=== PATIENT | male | born 1950 | race Caucasian/White ===

== ENCOUNTER 2019-04-08 20:39 | Outpatient (CLI) | payer MEDICAID, MEDICARE, OTHER | END 2019-04-08 20:40 | disposition critical access hospital (66) | LOC: EMS 20:39 | PROVIDERS: ATTEND Surgery | DX: R56.9 Unspecified convulsions (principal) | CPT/HCPCS: A0425; A0427 ==

== ENCOUNTER 2019-04-08 20:59 | Emergency (ER) | payer MEDICARE, OTHER, MEDICAID ==
--- NOTE | 2019-04-08 21:20 | ED Physician Documentation ---
PD HPI SEIZURE - Stated complaint Stated Complaint: SZ/ETOH - Chief complaint Chief Complaint: Neuro - History obtained from History obtained from: Patient, EMS, Other (nursing facility) - History of Present Illness Timing - onset: Today (just prior to arrival) Number of seizures: Single, Lasted minutes, Other (postictal afterwards) Description of seizure activity: Generalized, Tonic clonic Injury during seizure: None Associated symptoms: Other (patient was incontinent of urine). 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 denies: Generalized weakness, Focal weakness, Numbness, Difficulty speaking, Confused, Altered mental status, Headache, Head injury PD PAST MEDICAL HISTORY - Past Medical History Past Medical History: Yes Cardiovascular: Hypertension, High cholesterol Respiratory: None Endocrine/Autoimmune: None GI: None : None HEENT: None Psych: Depression Musculoskeletal: None Derm: None - Past Surgical History Past Surgical History: No - Present Medications Home Medications: Ambulatory Orders Medication Instructions Recorded Confirmed Aspirin [Simone] 325 mg PO DAILY 12/25/15 04/08/19 Clopidogrel [Plavix] 75 mg PO DAILY 12/25/15 04/08/19 Donepezil [Aricept] 10 mg PO DAILY 12/25/15 04/08/19 Simvastatin 20 mg PO DAILY 12/25/15 04/08/19 Levetiracetam [Keppra] 750 mg PO BID 02/28/16 04/08/19 Meclizine HCl [Motion Sickness 25 mg PO Q6H PRN 04/08/19 04/08/19 Relief] traZODone [Desyrel] 50 mg PO DAILY 04/08/19 04/08/19 - Allergies Allergies/Adverse Reactions: Allergies Allergy/AdvReac Type Severity Reaction Status Date / Time No Known Drug Allergies Allergy Verified 02/28/16 10:30 - Social History Does the pt smoke?: No Smoking Status: Never smoker Does the pt drink ETOH?: No Does the pt have substance abuse?: No - Immunizations Immunizations are current?: Yes - POLST Patient has POLST: Yes PD ED PE NORMAL - Vitals Vital signs reviewed: Yes - General General: Alert and oriented X 3 - HEENT HEENT: Atraumatic - Neck Neck: Supple, no meningeal sign - Cardiac Cardiac: RRR, No murmur, No gallop, No rub - Respiratory Respiratory: No respiratory distress, Clear bilaterally - Abdomen Abdomen: Soft, Non tender, Non distended - Male Male : Deferred - Rectal Rectal: Deferred - Derm Derm: Normal color, Warm and dry, No rash - Extremities Extremities: No deformity - Neuro Neuro: Alert and oriented X 3, No motor deficit, No sensory deficit, Normal speech Eye Opening: Spontaneous Motor: Obeys Commands Verbal: Oriented (slowed speech) GCS Score: 15 - Psych Psych: Normal mood, Normal affect Results - Vitals Vitals: Vital Signs - 24 hr 04/08/19 04/08/19 04/08/19 20:56 21:08 22:39 Temperature 36.5 C Heart Rate 93 71 66 Respiratory 18 14 15 Rate Blood Pressure 100/74 100/74 102/75 O2 Saturation 89 L 97 97 04/08/19 04/09/19 23:50 00:00 Temperature Heart Rate 76 81 Respiratory 12 15 Rate Blood Pressure 121/91 H 118/87 H O2 Saturation 98 98 Oxygen O2 Source [] Room air O2 Source [] Room air O2 Source Nasal cannula Oxygen Flow Rate 2 - Labs Labs: Laboratory Tests 04/08/19 04/08/19 21:22 23:41 Sodium 138 138 Potassium 2.9 L 3.8 Chloride 102 101 Carbon Dioxide 20 L 23 Anion Gap 16.0 H 14.0 H BUN 17 17 Creatinine 0.9 0.9 Estimated GFR (MDRD) 84 L 84 L Glucose 119 H 106 H Calcium 7.9 L 8.2 L Pt hypokalemic, dehydrated, potential etiology of seizure today. Will hydrate, replete K and recheck BMP. - Rads (name of study) No standard instances Radiology: Final report received (CT head negative ) PD MEDICAL DECISION MAKING - ED course Complexity details: reviewed results, re-evaluated patient, considered differential, d/w patient ED course: DDx includes seizure, syncope, electrolyte abnormality, head injury/CVA/mass, seizure due to missed medication/noncompliance. 68 y/o M with hx of seizure disorder with seizure today. On keppra, no missed doses. Appears to be consistent with seizure given incontinence and witnessed by staff. Last seizure several years ago. No head injury. This was a witnessed event in the nursing facility. He was postictal on arrival but had a normal neuro examination. he is on plavix and given no other obvious reason for seizure and episode today obtained a head CT which was negative. Labs here show hypokalemia which may have contributed. Repleted K here and will recheck lab. Departure - Departure Disposition: 01 Home, Self Care Clinical Impression: Grand mal seizure, Hypokalemia Condition: Stable Instructions: Hypokalemia Dc Follow-Up: Hermila Winters MD [Primary Care Provider] - As Needed Comments: You were evaluated in the ED today for a seizure. Your CT head was negative for acute bleeding, mass or stroke. Your labs showed significantly low potassium which could have caused your seizure. Your potassium was repleted with medication in the ED and is now normal. You should increase your intake of potassium by eating more leafy green vegetables. Return to the ED if worsening seizure.
[2019-04-08 21:35] LABS: CALCIUM 7.9 mg/dL (8.5-10.3); CREATININE 0.9 mg/dL (0.6-1.2)
[2019-04-08] MEDS ORDERED: POTASSIUM CHLORIDE 20 MEQ TABLET PO STA (21:58)
--- NOTE | 2019-04-08 22:05 | CT Report ---
Reason: seizure, on plavix, possible fall Procedure Date: 04/08/2019 Accession Number: [id number] / [id number] Procedure: CT - HEAD WO CPT Code: FULL RESULT: EXAM: CT HEAD EXAM DATE: 04/08/2019 09:36 PM. CLINICAL HISTORY: Seizure, on plavix, possible fall. COMPARISON: HEAD W/O 12/25/2015 7:56 AM. TECHNIQUE: Multiaxial CT images were obtained from the foramen magnum to the vertex. Reformats: Sagittal and coronal. IV contrast: None. In accordance with CT protocol optimization, one or more of the following dose reduction techniques were utilized for this exam: automated exposure control, adjustment of mA and/or KV based on patient size, or use of iterative reconstructive technique. 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 There is a small infarct within the left basal ganglia and the caudate head. Old small infarct within the bilateral superior parietal regions also noted. Old small left frontal infarct. There is severe chronic microvascular ischemic white matter change. Moderate diffuse cerebral volume loss is noted. There is no definite acute intracranial hemorrhage or large cortical infarct evident on this examination. Extraaxial Spaces: No abnormal extra-axial collections demonstrated. Ventricles and sulci: Moderate distention of the ventricles, out of proportion to the sulci. This is probably secondary to central predominant volume loss. Sinuses: Moderate mucosal thickening noted within the left maxillary sinus. Visualized paranasal sinuses are without air-fluid level. No evident mastoid fluid. Orbits: Without significant abnormality. Bones: No evidence of fracture or calvarial defect. Other: None. IMPRESSION: 1. No CT evidence of an acute intracranial abnormality. If there is clinical suspicion of an acute infarct, consider MRI since it is more sensitive than CT. 2. Moderate diffuse cerebral volume loss coupled with moderate to severe chronic microvascular ischemic change as well as multifocal old small areas of infarcts again seen. RADIA
[2019-04-08] MEDS ORDERED: POTASSIUM CHLOR 20 MEQ/100 ML 20 MEQ/100 ML BAG IV ONE (22:30)
[2019-04-09 00:30] LABS: CALCIUM 8.2 mg/dL (8.5-10.3); CREATININE 0.9 mg/dL (0.6-1.2)
[2019-04-09 01:57] VITALS: BP 135/95
== END 2019-04-09 02:06 | disposition home or self-care (01) ==
LOC: EDUNIT# → ED 20:59
DX: G40.409 Other generalized epilepsy and epileptic syndromes, not intractable, without status epilepticus (principal); E87.6 Hypokalemia; I10 Essential (primary) hypertension
CPT/HCPCS: 36415; 70450; 80048; 93005; 96365; 99284; A9270

== ENCOUNTER 2021-02-22 21:20 | Outpatient (CLI) | payer MEDICARE, MEDICAID ==
--- OUTSIDE RECORDS SUMMARY | 2021-03-01 00:34 | EXTERNAL MEDICAL SUMMARY RPT | Continuity of Care Document ---
:1950 Demographics Phone Unavailable Preferred Language Unknown Marital Status Unknown Episcopal Affiliation Unknown Race Unknown Ethnic Group Unknown Author Organization [place] Address [address] [place] [address] Phone Social History date description facility [phone]
== END 2021-02-22 21:21 | disposition critical access hospital (66) ==
LOC: EMS 21:20
PROVIDERS: ATTEND Emergency Medicine
DX: R42 Dizziness and giddiness (principal)
CPT/HCPCS: A0425; A0429

== ENCOUNTER 2021-02-22 21:36 | Inpatient (IN) | payer MEDICARE, MEDICAID ==
[2021-02-22] MEDS ORDERED: SODIUM CHLORIDE 0.9% 1,000 ML IV STA (21:55)
[2021-02-22] MEDS ORDERED: ACETAMINOPHEN 325 MG TABLET PO STA (21:56)
[2021-02-22 22:14] LABS: BASOPHILS % (AUTO) 0.2 %; EOSINOPHILS % (AUTO) 0.1 %; HCT - HEMATOCRIT 46.8 % (42.0-52.0); HGB - HEMOGLOBIN 15.5 g/dL (14.0-18.0); LYMPHOCYTES # (AUTO) 0.4 10^3/uL (1.5-3.5); LYMPHOCYTES % (AUTO) 2.8 %; MEAN CORPUSCULAR HEMOGLOBIN 30.3 pg (27.0-31.0); MEAN CORPUSCULAR HGB CONC 33.1 g/dL (32.0-36.0); MEAN CORPUSCULAR VOLUME 91.4 fL (80.0-94.0); MEAN PLATELET VOLUME 10.2 fL (7.4-11.4); MONOCYTES # (AUTO) 0.8 10^3/uL (0.0-1.0); MONOCYTES % (AUTO) 6.5 %; NEUTROPHILS # (AUTO) 11.1 10^3/uL (1.5-6.6); NEUTROPHILS % (AUTO) 90.1 %; PLT - PLATELET COUNT 145 10^3/uL (130-450); RED BLOOD COUNT 5.12 10^6/uL (4.70-6.10); RED CELL DISTRIBUTION WIDTH 12.9 % (12.0-15.0); WHITE BLOOD COUNT 12.3 x10^3/uL (4.8-10.8)
[2021-02-22 22:28] LABS: ALBUMIN 4.2 g/dL (3.2-5.5); ALBUMIN/GLOBULIN RATIO 1.6 (1.0-2.2); BILIRUBIN,TOTAL 0.8 mg/dL (0.2-1.0); CALCIUM 9.3 mg/dL (8.5-10.3); POTASSIUM 3.7 mmol/L (3.5-5.0); TOTAL PROTEIN 6.9 g/dL (6.7-8.2)
[2021-02-22] MEDS ORDERED: CEFEPIME 2 GM in SODIUM CHLORIDE 0.9% MINIBAG 100 ML IV STA (22:35)
[2021-02-22 22:56] LABS: BILIRUBIN,URINE NEGATIVE (NEGATIVE); GLUCOSE, URINE (UA) NEGATIVE (NEGATIVE); KETONES,URINE (UA) NEGATIVE (NEGATIVE); LEUKOCYTE ESTERASE, URINE NEGATIVE (NEGATIVE); NITRITE,URINE NEGATIVE (NEGATIVE); OCCULT BLOOD,URINE NEGATIVE (NEGATIVE); PH,URINE 6.5 PH (5.0-7.5); PROTEIN,URINE NEGATIVE (NEGATIVE); UROBILINOGEN,URINE 0.2 (NORMAL) E.U./dL (NORMAL)
[2021-02-22 22:57] LABS: CLARITY,URINE CLEAR (CLEAR)
[2021-02-22 23:02] LABS: BACTERIA,URINE None Seen /HPF (None Seen); RBC,URINE 0-5 /HPF (0-5); SQUAMOUS EPITHELIAL CELL,UR NONE SEEN (<= Few); WBC,URINE 0-3 /HPF (0-3)
[2021-02-22] MEDS ORDERED: KETOROLAC 15 MG/ML VIAL IVP STA (23:52)
[2021-02-23] MEDS ORDERED: IOVERSOL 320 100 ML VIAL IVP ONE ×2 (00:03→00:33)
[2021-02-23 00:04] LABS: B. PARAPERTUSSIS- RESP PCR PAN NOT DETECTED; B. PERTUSSIS- RESP PCR PANEL NOT DETECTED; C. PNEUMONIAE- RESP PCR PANEL NOT DETECTED; CORONAVIRUS 229E-RESP PCR NOT DETECTED; CORONAVIRUS HKU1-RESP PCR NOT DETECTED; CORONAVIRUS NL63-RESP PCR NOT DETECTED; CORONAVIRUS OC43-RESP PCR NOT DETECTED; HUMAN METAPNEUMOVIRUS NOT DETECTED; INFLUENZA A- RESP PCR PANEL NOT DETECTED; INFLUENZA B - RESP PCR PANEL NOT DETECTED; M. PNEUMONIAE- RESP PCR PANEL NOT DETECTED; PARAINFLUENZA VIRUS 1 NOT DETECTED; PARAINFLUENZA VIRUS 2 NOT DETECTED; PARAINFLUENZA VIRUS 3 NOT DETECTED; PARAINFLUENZA VIRUS 4 NOT DETECTED; RHINOVIRUS/ENTEROVIRUS NOT DETECTED; RSV- RESP PCR PANEL NOT DETECTED; SARS-CoV-2 -RESP PCR PANEL NOT DETECTED
[2021-02-23] MEDS ORDERED: SODIUM CHLORIDE 0.9% 1,000 ML IV STA (00:22)
--- NOTE | 2021-02-23 00:36 | ED Physician Documentation ---
PD HPI SYNCOPE - Stated complaint Stated Complaint: GLF/ VERTIGO - Chief complaint Chief Complaint: Critical Care - History obtained from History obtained from: Patient, Caregiver - History of Present Illness Witnessed: Witnessed (Lightheadedness for the last day or 2. He did not notice any fevers. No belly pain vomiting or diarrhea. He had a near syncope and slumped this evening. EMS was called. No focal weakness is noted.) Timing - onset: How many days ago (1-2 days of weakness and feeling lightheaded with standing.) Duration: Minutes (general weakness and was unsteady, nearly fell, and was eased to floor by staff. EMS called. No true syncope.) Preceding symptoms: Light headed, Generalized weakness. No: Headache, Dyspnea, Abdominal pain, Nausea / vomiting Associated symptoms: No: Seizure, Headache, Chest pain, Nausea / vomiting, Abdominal pain Contributing factors: Just stood up. No: Recent med change, Decreased PO intake Injury occurred: No: Fell, Head injury, Neck injury Similar symptoms before: Has not had sx before Recently seen: Not recently seen Review of Systems Constitutional: reports: Fever (noted febrile enroute and in ER. Pt not aware of fever earlier today but felt warm.) Nose: denies: Rhinorrhea / runny nose, Congestion Throat: denies: Dental pain / toothache, Sore throat Cardiac: denies: Chest pain / pressure Respiratory: denies: Dyspnea, Cough GI: denies: Abdominal Pain, Vomiting, Diarrhea : reports: Frequency. denies: Dysuria Skin: denies: Rash, Lesions Musculoskeletal: denies: Neck pain, Back pain Neurologic: reports: Generalized weakness, Near syncope. denies: Syncope, Altered mental status, Headache PD PAST MEDICAL HISTORY - Past Medical History Cardiovascular: Hypertension, High cholesterol Respiratory: None Endocrine/Autoimmune: None GI: None : None HEENT: None Psych: Depression Musculoskeletal: None Derm: None - Past Surgical History Past Surgical History: No - Present Medications Home Medications: Ambulatory Orders Medication Instructions Recorded Confirmed Aspirin [Simone] 81 mg PO DAILY 12/25/15 04/08/19 Clopidogrel [Plavix] 75 mg PO DAILY 12/25/15 04/08/19 Simvastatin 20 mg PO DAILY 12/25/15 04/08/19 Levetiracetam [Keppra] 1,000 mg PO BID 02/28/16 04/08/19 Meclizine HCl [Motion Sickness 25 mg PO Q6H PRN 04/08/19 04/08/19 Relief] traZODone [Desyrel] 50 mg PO DAILY 04/08/19 04/08/19 - Allergies Allergies/Adverse Reactions: Allergies Allergy/AdvReac Type Severity Reaction Status Date / Time No Known Drug Allergies Allergy Verified 02/28/16 10:30 - Social History Does the pt smoke?: No Smoking Status: Never smoker Does the pt drink ETOH?: No Does the pt have substance abuse?: No - Immunizations Immunizations are current?: Yes - POLST Patient has POLST: Yes PD ED PE NORMAL - Vitals Vital signs reviewed: Yes - General General: Alert and oriented X 3, No acute distress, Well developed/nourished - HEENT HEENT: Atraumatic, Ears normal, Moist mucous membranes, Pharynx benign, Dentition benign (no localized dental tenderness. ) - Neck Neck: Supple, no meningeal sign, No adenopathy - Cardiac Cardiac: No murmur, No rub. No: RRR (regular but tachycardic) - Respiratory Respiratory: No respiratory distress, Clear bilaterally - Abdomen Abdomen: Normal bowel sounds, Soft, Non distended, No organomegaly, Other (mild discomfort without pain per se in upper abdomen. No distension. BS normal. ) - Rectal Rectal: Other (no masses, nontender on digital.) - Back Back: No CVA TTP - Derm Derm: Normal color, Warm and dry, No rash Results - Vitals Vitals: Vital Signs - 24 hr 02/22/21 02/22/21 02/22/21 21:39 22:00 22:30 Temperature 38.9 C H Heart Rate 110 H 111 H 114 H Respiratory 24 20 21 Rate Blood Pressure 133/92 H 124/93 H 127/103 H O2 Saturation 93 94 96 02/22/21 02/22/21 02/23/21 23:00 23:30 00:00 Temperature 38.6 C H 38 C H Heart Rate 118 H 110 H 125 H Respiratory 21 20 24 Rate Blood Pressure 119/95 H 118/87 H 175/128 H O2 Saturation 95 94 94 02/23/21 02/23/21 00:30 01:00 Temperature 37.6 C Heart Rate 96 82 Respiratory 18 14 Rate Blood Pressure 96/78 100/77 O2 Saturation 95 93 Oxygen O2 Source [With Activity] Room air O2 Source [Without Activity] Room air O2 Source Room air - Labs Labs: Laboratory Tests 02/22/21 02/22/21 02/22/21 22:03 22:03 22:03 WBC 12.3 H RBC 5.12 Hgb 15.5 Hct 46.8 MCV 91.4 MCH 30.3 MCHC 33.1 RDW 12.9 Plt Count 145 MPV 10.2 Neut # (Auto) 11.1 H Lymph # (Auto) 0.4 L Saline # (Auto) 0.8 Eos # (Auto) 0.0 Baso # (Auto) 0.0 Absolute Nucleated RBC 0.00 Nucleated RBC % 0.0 Sodium 138 Potassium 3.7 Chloride 102 Carbon Dioxide 26 Anion Gap 10.0 BUN 19 Creatinine 1.0 Estimated GFR (MDRD) 74 L Glucose 130 H Lactic Acid 1.4 Calcium 9.3 Total Bilirubin 0.8 AST 30 ALT 26 Alkaline Phosphatase 95 Total Protein 6.9 Albumin 4.2 Globulin 2.7 Albumin/Globulin Ratio 1.6 Urine Color Urine Clarity Urine pH Ur Specific [place] Urine Protein Urine Glucose (UA) Urine Ketones Urine Occult Blood Urine Nitrite Urine Bilirubin Urine Urobilinogen Ur Leukocyte Esterase Urine RBC Urine WBC Ur Squamous Epith Cells Urine Bacteria Urine Culture Comments Nasal Adenovirus (PCR) Nasal B. parapertussis DNA (PCR) Nasal Coronavir 229E PCR Nasal Coronavir HKU1 PCR Nasal Coronavir NL63 PCR Nasal Coronavir OC43 PCR Nasal Enterovir/Rhinovir PCR Nasal Influenza B PCR Nasal Influenza A PCR Nasal Parainfluen 1 PCR Nasal Parainfluen 2 PCR Nasal Parainfluen 3 PCR Nasal Parainfluen 4 PCR Nasal RSV (PCR) Nasal B.pertussis DNA PCR Nasal C.pneumoniae (PCR) Rolando Human Metapneumo PCR Nasal M.pneumoniae (PCR) Nasal SARS-CoV-2 (PCR) 02/22/21 02/22/21 22:30 23:03 WBC RBC Hgb Hct MCV MCH MCHC RDW Plt Count MPV Neut # (Auto) Lymph # (Auto) Saline # (Auto) Eos # (Auto) Baso # (Auto) Absolute Nucleated RBC Nucleated RBC % Sodium Potassium Chloride Carbon Dioxide Anion Gap BUN Creatinine Estimated GFR (MDRD) Glucose Lactic Acid Calcium Total Bilirubin AST ALT Alkaline Phosphatase Total Protein Albumin Globulin Albumin/Globulin Ratio Urine Color YELLOW Urine Clarity CLEAR Urine pH 6.5 Ur Specific [place] 1.015 Urine Protein NEGATIVE Urine Glucose (UA) NEGATIVE Urine Ketones NEGATIVE Urine Occult Blood NEGATIVE Urine Nitrite NEGATIVE Urine Bilirubin NEGATIVE Urine Urobilinogen 0.2 (NORMAL) Ur Leukocyte Esterase NEGATIVE Urine RBC 0-5 Urine WBC 0-3 Ur Squamous Epith Cells NONE SEEN Urine Bacteria None Seen Urine Culture Comments NOT INDICATED Nasal Adenovirus (PCR) NOT DETECTED Nasal B. parapertussis DNA (PCR) NOT DETECTED Nasal Coronavir 229E PCR NOT DETECTED Nasal Coronavir HKU1 PCR NOT DETECTED Nasal Coronavir NL63 PCR NOT DETECTED Nasal Coronavir OC43 PCR NOT DETECTED Nasal Enterovir/Rhinovir PCR NOT DETECTED Nasal Influenza B PCR NOT DETECTED Nasal Influenza A PCR NOT DETECTED Nasal Parainfluen 1 PCR NOT DETECTED Nasal Parainfluen 2 PCR NOT DETECTED Nasal Parainfluen 3 PCR NOT DETECTED Nasal Parainfluen 4 PCR NOT DETECTED Nasal RSV (PCR) NOT DETECTED Nasal B.pertussis DNA PCR NOT DETECTED Nasal C.pneumoniae (PCR) NOT DETECTED Rolando Human Metapneumo PCR NOT DETECTED Nasal M.pneumoniae (PCR) NOT DETECTED Nasal SARS-CoV-2 (PCR) NOT DETECTED - Rads (name of study) chest xray Radiology: Prelim report reviewed (no infiltrates), See rad report abd/pelvic CT Radiology: Prelim report reviewed (deep right perirectal/sigmoid area of mass/inflammation c/w infection or mass. No other acute process. ), See rad report PD MEDICAL DECISION MAKING - ED course Complexity details: reviewed results (the perirectal mass/inflammation (not abscess appearing) is only finding on labs/imaging. Presume this is infection source. Has abnormal vitals. So concern for SIRS/early sepsis. ), considered differential (initially febrile and tachycardic. BP initially okay but got softer actually, after IV fluids, concerning for developing sepsis/SIRS. No obvious source identified with initial testing. Not having abd pain/tender, but did have nausea, so got abd CT to eval. This showed perirectal deep mass/swelling.), d/w patient Departure - Departure Disposition: 66 [facility] DC/Xfer Clinical Impression: Fever, SIRS (systemic inflammatory response syndrome), Generalized weakness, Perirectal inflammation Condition: Stable Record reviewed to determine appropriate education?: Yes Discharge Date/Time: 02/23/21 02:30
[2021-02-23] MEDS ORDERED: metroNIDAZOLE 500 MG/100 ML 500 MG/100 ML BAG IV ONE (01:26)
[2021-02-23] MEDS ORDERED: SODIUM CHLORIDE FLUSH 0.9% 10 ML SYRINGE IVP PRN (01:38)
[2021-02-23] MEDS ORDERED: ACETAMINOPHEN 325 MG TABLET PO PRN (01:39)
[2021-02-23] MEDS ORDERED: ONDANSETRON 4 MG/2 ML VIAL IVP PRN (01:39)
--- NOTE | 2021-02-23 01:46 | HISTORY & PHYSICAL EXAMINATION ---
Chief Complaint - Chief Complaint Chief Complaint: Weakness and almost fell History of Present Illness - Admitted From Admitted From:: [facility] - History Obtained From Records Reviewed: Yes History obtained from: Patient, ER Physician, EMR - History of Present Illness HPI Comment/Other: This is a pleasant 70-year-old male with a past medical history significant for dementia, seizure disorder, stroke who presents today from walking home due to increasing generalized weakness. The patient reports he has felt weak for the past few days and today he nearly fell when trying to go to the bathroom. He states he feels well otherwise. He reports he does feel dizzy but this is chronic for him and that he feels dizzy 24/ and this has been present for 5 years. He denies any fevers or chills. Reports no abdominal pain, nausea, vomiting. Denies chest pain, dyspnea, cough. Reports no dysuria, urgency, frequency, hematuria. Denies any blood in his stool. Reports no back pain, neck pain. He denies ever having a colonoscopy. He reports having no surgeries. He currently denies having any pain whatsoever. He states this feels a little weak and actually feels better since he has been here in the emergency department. He denies any focal deficits. In the emergency department, he was found to be febrile with a temperature of 38.9 C. He was initially tachycardic with heart rates in the 110s to 120s. He was normotensive. He was not tachypneic and saturating well on room air. Labs were significant for a white count of 12.3 with a left shift. Lactic acid was normal. Urinalysis was unremarkable. Respiratory PCR panel was also unremarkable. He underwent a CT of the abdomen and pelvis which was concerning for possible right perirectal mass which could be neoplasm or infection. Given the above findings, medicine was consulted for admission. He did receive cefepime and Flagyl IV in the emergency department. He also received 2 L of IV fluids and acetaminophen. I did discuss goals of care with the patient and he would like to be a DNR. History - Past Medical History Cardiovascular: reports: Hypertension, High cholesterol Respiratory: reports: None Neuro: reports: Dementia, CVA, TIA, Seizure disorder Endocrine/Autoimmune: reports: None GI: reports: None : reports: None HEENT: reports: None Psych: reports: Depression Musculoskeletal: reports: None Derm: reports: None MRSA Hx?: No Other Past Medical History: vertigo - Family & Social History Family History Comment/Other: He reports he has an older brother with dementia. He had another brother who from a myocardial infarction. His father also from heart disease. He denies a history of cancer. Living arrangement: [facility] Social History Notes: He lives at [facility] in [place]. He is a non- smoker. He will drink a couple of alcoholic beverages every few days. He previously worked at the [employer] for 15 years. - POLST Patient has POLST: Yes Meds/Allgy - Home Medications Home Medications: Ambulatory Orders Medication Instructions Recorded Confirmed Aspirin [Simone] 81 mg PO DAILY 12/25/15 04/08/19 Clopidogrel [Plavix] 75 mg PO DAILY 12/25/15 04/08/19 Simvastatin 20 mg PO DAILY 12/25/15 04/08/19 Levetiracetam [Keppra] 1,000 mg PO BID 02/28/16 04/08/19 Meclizine HCl [Motion Sickness 25 mg PO Q6H PRN 04/08/19 04/08/19 Relief] traZODone [Desyrel] 50 mg PO DAILY 04/08/19 04/08/19 - Allergies Allergies/Adverse Reactions: Allergies Allergy/AdvReac Type Severity Reaction Status Date / Time No Known Drug Allergies Allergy Verified 02/28/16 10:30 Review of Systems - Constitutional Constitutional: reports: Weakness. denies: Fatigue, Fever, Chills - Eyes Eyes: denies: Blurred vision, Vision loss - Ears, Nose & Throat Ears, Nose & Throat: denies: Nasal discharge, Nasal congestion, Sore throat - Cardiovascular Cariovascular: denies: Chest pain, Edema, Lightheadedness, Syncope, Exertional dyspnea, Decr. exercise tolerance - Respiratory Respiratory: denies: Cough, Sputum production, SOB at rest, SOB with exertion - Gastrointestinal Gastrointestinal: denies: Abdominal pain, Rectal bleeding, Bloody stools, Nausea, Vomiting - Genitourinary Genitourinary: denies: Dysuria, Frequency, Urgency, Hematuria - Musculoskeletal Musculoskeletal: denies: Muscle pain, Back pain, Limited range of motion - Integumentary Integumentary: denies: Rash - Neurological Neurological: reports: General weakness, Dizziness, Memory problems. denies: Focal weakness, Headache, Numbness - Hematologic/Lymphatic Hematologic/Lymphatic: denies: Bleeding tendencies - All Other Systems All Other Systems: reports: Reviewed and negative Prior Level of Functionality: He reports being independent with his ADLs. Exam - Vital Signs Reviewed Vital Signs: Yes Vital Signs: Vital Signs x48h Temp Pulse Resp BP Pulse Ox 02/23/21 01:00 37.6 C 82 14 100/77 93 02/23/21 00:30 96 18 96/78 95 02/23/21 00:00 38 C H 125 H 24 175/128 H 94 02/22/21 23:30 110 H 20 118/87 H 94 02/22/21 23:00 38.6 C H 118 H 21 119/95 H 95 02/22/21 22:30 114 H 21 127/103 H 96 02/22/21 22:00 111 H 20 124/93 H 94 02/22/21 21:39 38.9 C H 110 H 24 133/92 H 93 - Physical Exam General Appearance: positive: No acute distress, Alert Eyes Bilateral: positive: Normal inspection, Conjunctivae nml ENT: positive: ENT inspection nml Neck: positive: Nml inspection Respiratory: positive: No respiratory distress. negative: Wheezes, Rales Cardiovascular: positive: Regular rate & rhythm, No murmur. negative: Tachycardia, Systolic murmur Abdomen: positive: Non-tender, No distention. negative: Tenderness, Guarding, Rebound Rectal: positive: Other (No erythema or perirectal tenderness. No obvious fluctuance noted.) Back: positive: Nml inspection, Other (No tenderness throughout the cervical, thoracic, lumbar spine) Skin: positive: Warm, Dry Extremities: positive: Full ROM, No pedal edema Neurologic/Psychiatric: positive: Motor nml, Sensation nml, Disoriented to time (He did not know the year. He thought it was 2001.). negative: Disoriented to person, Disoriented to place Sepsis Event Note (H) - Evaluation Current Stage of Sepsis: Sepsis Possible source of Sepsis: positive: GI tract/intra-abdominal, Skin/soft tissue - Sepsis Criteria Sepsis Criteria: Recorded Temperature greater than 38.3C or Less than 36C, Recorded Heart Rate greater than 90 bpm, WBC count greater than 12,000 or less than 4000 Conclusion/Plan - Problem List (1) Sepsis Conclusion/Plan: He presents with a fever, leukocytosis, tachycardia and borderline hypotension. His lactic acid is normal. Suspect this is related to the perirectal mass which may be an abscess. Chest x-ray, urinalysis are unremarkable and there is no other obvious source of infection based off history and exam. We will place him on ceftriaxone and Flagyl IV. Continue lactated Ringer's. Follow-up blood cultures. Daily CBC. (2) Mass of perirectal soft tissue Conclusion/Plan: This is suspicious for either infection or a mass based off of imaging. Suspect is likely infection given his fever and concern for sepsis. We will place him on ceftriaxone and Flagyl IV. General surgery has been contacted and will plan for colonoscopy. We will make him n.p.o. for this. (3) Seizure disorder Conclusion/Plan: Stable. Continue Keppra. (4) History of stroke Conclusion/Plan: Reportedly has a history of stroke or TIA. He is on aspirin and Plavix as well as a statin. We will continue the statin and hold the aspirin and Plavix for th e time being given the likely need for either biopsy or surgical intervention. (5) Dementia Conclusion/Plan: Appears to be at his baseline from a dementia standpoint. Plan will be to discharge him back to [facility] once medically stable. Social work has been consulted to assist with this. - Lab Results Lab results reviewed: Yes Saravanan Bones: 02/22/21 22:03 02/22/21 22:03 - Diagnostic Imaging Results Diagnostic Imaging Results: positive: Final report reviewed - EKG Results EKG Interpreted Independently: Yes EKG Comparison: Unchanged from prior EKG EKG Findings: EKG shows a sinus tachycardia. No obvious ST segment changes. There is a right bundle branch block. Core Measures - Anticipated LOS I expect patient to be DC'd or transferred within 96 hours.: Yes - Issues Hospital Issues and Management Plan: 70-year-old male presents with weakness found to have sepsis likely due to a perirectal mass which could be infection or neoplasm. Will admit for IV antibiotics and general surgery consult. - DVT/VTE - Prophylaxis VTE/DVT Device ordered at admit?: Yes VTE/DVT Prophylaxis med ordered at admit?: Yes
[2021-02-23] MEDS: LACTATED RINGERS 1,000 ML IV SCH ×2 (02:54→14:51)
[2021-02-23 04:40] LABS: BASOPHILS % (AUTO) 0.2 %; HCT - HEMATOCRIT 42.7 % (42.0-52.0); HGB - HEMOGLOBIN 13.6 g/dL (14.0-18.0); LYMPHOCYTES # (AUTO) 0.7 10^3/uL (1.5-3.5); LYMPHOCYTES % (AUTO) 7.6 %; MEAN CORPUSCULAR HEMOGLOBIN 29.9 pg (27.0-31.0); MEAN CORPUSCULAR HGB CONC 31.9 g/dL (32.0-36.0); MEAN CORPUSCULAR VOLUME 93.8 fL (80.0-94.0); MEAN PLATELET VOLUME 10.5 fL (7.4-11.4); MONOCYTES # (AUTO) 0.5 10^3/uL (0.0-1.0); MONOCYTES % (AUTO) 5.5 %; NEUTROPHILS # (AUTO) 7.3 10^3/uL (1.5-6.6); NEUTROPHILS % (AUTO) 86.2 %; PLT - PLATELET COUNT 135 10^3/uL (130-450); RED BLOOD COUNT 4.55 10^6/uL (4.70-6.10); RED CELL DISTRIBUTION WIDTH 13.2 % (12.0-15.0); WHITE BLOOD COUNT 8.5 x10^3/uL (4.8-10.8)
[2021-02-23 04:59] LABS: CALCIUM 8.1 mg/dL (8.5-10.3); CREATININE 0.8 mg/dL (0.6-1.2); CRP - C-REACTIVE PROTEIN 1.5 mg/dL (0-1.0); POTASSIUM 3.8 mmol/L (3.5-5.0)
--- NOTE | 2021-02-23 08:33 | XRAY Report ---
PROCEDURE: Chest 1 View X-Ray INDICATIONS: fever TECHNIQUE: One view of the chest was acquired. COMPARISON: 12/25/2015 FINDINGS: Surgical changes and devices: None. Lungs and pleura: No pleural effusions or pneumothorax. Lungs are low bilaterally. No focal airspac e disease. Mediastinum: Mediastinal contours appear normal. Heart size is normal. Bones and chest wall: No suspicious bony lesions. Overlying soft tissues appear unremarkable. IMPRESSION: Low lung volumes bilaterally. No focal airspace disease. Otherwise, no acute cardiopulmonary abnormal ities identified. No significant discrepancy with initial interpretation by overnight radiologist. Reviewed by: Maximiliano Og MD on 02/23/2021 8:31 AM PDT Approved by: Maximiliano Og MD on 02/23/2021 8:31 AM PDT Station ID: [id number]
--- NOTE | 2021-02-23 08:54 | CT Report ---
PROCEDURE: Abdomen/Pelvis W INDICATIONS: fever/ weakness; unknown source CONTRAST: IV CONTRAST: Optiray 320 ml: 100 PO CONTRAST: *NO PO CONTRAST TECHNIQUE: After the administration of contrast, 5 mm thick sections acquired from the diaphragms to the sym physis. 5 mm thick coronal and sagittal reformats were acquired. For radiation dose reduction, the following was used: automated exposure control, adjustment of mA and/or kV according to patient size . COMPARISON: None. FINDINGS: Image quality: Excellent. ABDOMEN: Lung bases: Mild bibasilar atelectasis. Heart size is normal. Scattered atherosclerotic calcificatio ns of the coronary arteries. Solid organs: Liver and spleen are normal in size and enhancement. Gallbladder is unremarkable. Bi liary system is non dilated. Pancreas enhances normally. No adrenal nodules. Kidneys demonstrate n ormal size and enhancement, without hydronephrosis. Renal cortical scarring of the left kidney. Bilat eral ureters are normal in course and caliber. Peritoneum and bowel: Bowel loops demonstrate normal wall thickness and caliber. No free fluid or a ir. Normal appendix. Nodes and vessels: No retroperitoneal or mesenteric adenopathy by size criteria. Aorta and inferior vena cava are normal in size. Scattered atherosclerotic calcifications of the abdominal aorta withou t aneurysmal dilatation. Miscellaneous: No ventral hernias. PELVIS: Genitourinary: Bladder wall thickness is normal. There is a right-sided urinary bladder diverticulu m containing a stone. No perivesicular inflammatory stranding. Miscellaneous: No pelvic adenopathy. Small fat-containing left inguinal hernia without acute inflam mation. There is a lobular 1.6 x 3.5 cm right perirectal mass which is more hypodense centrally. Sugg estion of minimal peripheral stranding. Bones: No suspicious bony lesions. No vertebral body compression fractures. IMPRESSION: 1. A 3.5 x 1.6 cm right perirectal mass. This may represent an infectious process/early abscess versu s possible neoplastic lesion. No evidence for pelvic adenopathy. 2. Fat-containing left inguinal hernia without acute inflammation. No significant discrepancy with initial interpretation by overnight radiologist. Reviewed by: Maximiliano Og MD on 02/23/2021 8:52 AM PDT Approved by: Maximiliano Og MD on 02/23/2021 8:52 AM PDT Station ID: [id number]
[2021-02-23] MEDS: metroNIDAZOLE 500 MG/100 ML 500 MG/100 ML BAG IV SCH ×2 (10:07→19:26)
[2021-02-23] MEDS: levETIRAcetam 250 MG TABLET PO SCH ×2 (10:07→20:49)
[2021-02-23] MEDS: SODIUM CHLORIDE FLUSH 0.9% 10 ML SYRINGE IVP SCH ×2 (10:10→19:26)
[2021-02-23] MEDS: ENOXAPARIN 40 MG/0.4 ML SYRINGE SUBQ SCH (10:11)
--- NOTE | 2021-02-23 11:53 | PHARMACY PROGRESS NOTE ---
- Best Possible Medication History Admit Date and Time: 02/23/21 0138 Processed by: Pharmacy Medication History completed: Yes Patient Interview: Completed Secondary Source(s): Physician records, Pharmacy records, Insurance records (PATIENT LIVES AT [facility]. MEDICATION MAR OBTAINED TO COMPLETE MED REC) As the person ultimately responsible for medication therapy, providers are able to order a medication from an existing home medication list in [facility] via the "Reconcile Routine" prior to Confirmation of that medication by sales support associate. Such practice is discouraged except when the physician, in their clinical judgment, deems that a medical need exists for a medication without regard to previous use.
[2021-02-23] MEDS: cefTRIAXone 2 GM in SODIUM CHLORIDE 0.9% MINIBAG 100 ML IV SCH (12:53)
--- NOTE | 2021-02-23 13:50 | HISTORY & PHYSICAL EXAMINATION ---
Chief Complaint - Chief Complaint Chief Complaint: weakness yesterday History of Present Illness - Admitted From Admitted From:: ED - History Obtained From Records Reviewed: yes Exam Limitations: none - History of Present Illness HPI Comment/Other: Seen and evaluated through the ED yesterday for weakness. He was found to have elevated wbc and fever. Ct scan showed possible deep pelvic abscess vs mass. He was started on antibiotics. He denies pain and states he feels well today and feels up to going home. He denies perianal/ rectal pain, change in bowel habits. History - Past Medical History Cardiovascular: reports: Hypertension, High cholesterol Respiratory: reports: None Neuro: reports: Dementia, CVA, TIA, Seizure disorder Endocrine/Autoimmune: reports: None GI: reports: None : reports: None HEENT: reports: None Psych: reports: Depression Musculoskeletal: reports: None Derm: reports: None MRSA Hx?: No Other Past Medical History: vertigo - Family & Social History Family History Comment/Other: He reports he has an older brother with dementia. He had another brother who from a myocardial infarction. His father also from heart disease. He denies a history of cancer. Living arrangement: long-term Social History Notes: [facility] [place] He is a non- smoker. He will drink a couple of alcoholic beverages every few days. He previously worked at the [employer] in [place] for 15 years. - POLST Patient has POLST: Yes Meds/Allgy - Home Medications Home Medications: Ambulatory Orders Medication Instructions Recorded Confirmed Clopidogrel [Plavix] 75 mg PO DAILY 12/25/15 02/23/21 Simvastatin 20 mg PO DAILY 12/25/15 02/23/21 Meclizine HCl [Motion Sickness 25 mg PO Q6H PRN 04/08/19 02/23/21 Relief] Aspirin [Aspirin EC] 81 mg PO DAILY 02/23/21 02/23/21 Cholecalciferol (Vitamin D3) 50 mcg PO DAILY 02/23/21 02/23/21 [Vitamin D3] Levetiracetam [Keppra] 1,000 mg PO BID 02/23/21 02/23/21 traZODone [Desyrel] 50 mg PO QPM 02/23/21 02/23/21 - Allergies Allergies/Adverse Reactions: Allergies Allergy/AdvReac Type Severity Reaction Status Date / Time No Known Drug Allergies Allergy Verified 02/28/16 10:30 Review of Systems - Other Findings Other Findings: 10 pt ros as above otherwise unremarkable he feels well today. no discomfort Exam - Vital Signs Reviewed Vital Signs: Yes Vital Signs: Vital Signs x48h Temp Pulse Resp BP Pulse Ox 02/23/21 08:00 36.6 C 78 16 112/59 L 92 02/23/21 05:58 36.8 C 80 18 151/88 H 96 - Physical Exam General Appearance: positive: No acute distress, Alert Eyes Bilateral: positive: Normal inspection, PERRL ENT: positive: No signs of dehydration Neck: positive: No JVD, Trachea midline Respiratory: positive: No respiratory distress Abdomen: positive: Non-tender, No distention Rectal: positive: Other (denies swelling or pain) Sepsis Event Note (H) - Evaluation Current Stage of Sepsis: Sepsis Possible source of Sepsis: positive: GI tract/intra-abdominal, Skin/soft tissue - Sepsis Criteria Sepsis Criteria: Recorded Temperature greater than 38.3C or Less than 36C, Recorded Heart Rate greater than 90 bpm, WBC count greater than 12,000 or less than 4000 Conclusion/Plan - Problem List (2) Fever Conclusion/Plan: He is much improved. normal wbc. Afebrile. NO pain. Feels hungry and up to going home. Not clearly a ramón rectosigmoid abscess. No surrounding inflammation Agree with course of antibiotics. Recommend diet and if doing well may follow up with surgery. Plan repeat ct in 3 to 6 months/ follow up small deep pelvic mass Colon cancer screening as indicated Discuss elective hernia surgery - Lab Results Lab results reviewed: Yes Fish Bones: 02/23/21 04:04 02/23/21 04:04 - Diagnostic Imaging Results Diagnostic Imaging Results: positive: Final report reviewed, Read independently, Other (small fat containing left inguinal hernia deep small right pelvic mass not clearly associated with the rectosigmoid and with no enhancement or adjacent inflammatory changes. no air, etc)
[2021-02-23] MEDS ORDERED: SODIUM/POTASSIUM/MAG SULFATES 354 ML PREP KIT PO SCH (18:00)
[2021-02-23] MEDS: ATORVASTATIN 10 MG TABLET PO SCH (20:49)
[2021-02-23] MEDS ORDERED: SIMVASTATIN 20 MG PO SCH (21:00)
[2021-02-24] MEDS: metroNIDAZOLE 500 MG/100 ML 500 MG/100 ML BAG IV SCH ×4 (00:42→23:54)
[2021-02-24] MEDS: SODIUM CHLORIDE FLUSH 0.9% 10 ML SYRINGE IVP SCH ×4 (01:42→23:54)
[2021-02-24 06:03] LABS: BASOPHILS % (AUTO) 0.8 %; EOSINOPHILS % (AUTO) 1.1 %; HCT - HEMATOCRIT 45.3 % (42.0-52.0); HGB - HEMOGLOBIN 14.9 g/dL (14.0-18.0); LYMPHOCYTES # (AUTO) 0.7 10^3/uL (1.5-3.5); LYMPHOCYTES % (AUTO) 18.3 %; MEAN CORPUSCULAR HEMOGLOBIN 30.3 pg (27.0-31.0); MEAN CORPUSCULAR HGB CONC 32.9 g/dL (32.0-36.0); MEAN CORPUSCULAR VOLUME 92.3 fL (80.0-94.0); MEAN PLATELET VOLUME 10.6 fL (7.4-11.4); MONOCYTES # (AUTO) 0.7 10^3/uL (0.0-1.0); MONOCYTES % (AUTO) 18.3 %; NEUTROPHILS # (AUTO) 2.3 10^3/uL (1.5-6.6); PLT - PLATELET COUNT 120 10^3/uL (130-450); RED BLOOD COUNT 4.91 10^6/uL (4.70-6.10); RED CELL DISTRIBUTION WIDTH 12.9 % (12.0-15.0); WHITE BLOOD COUNT 3.7 x10^3/uL (4.8-10.8)
[2021-02-24 06:20] LABS: CALCIUM 8.5 mg/dL (8.5-10.3); CREATININE 0.8 mg/dL (0.6-1.2); CRP - C-REACTIVE PROTEIN 4.6 mg/dL (0-1.0); POTASSIUM 3.4 mmol/L (3.5-5.0)
[2021-02-24] MEDS: LACTATED RINGERS 1,000 ML IV SCH (07:01)
[2021-02-24] MEDS ORDERED: POTASSIUM CHLORIDE 20 MEQ TABLET PO ONE ×2 (07:02→07:55)
[2021-02-24] MEDS: levETIRAcetam 250 MG TABLET PO SCH ×2 (08:09→21:16)
[2021-02-24] MEDS: cefTRIAXone 2 GM in SODIUM CHLORIDE 0.9% MINIBAG 100 ML IV SCH (08:10)
[2021-02-24] MEDS: ENOXAPARIN 40 MG/0.4 ML SYRINGE SUBQ SCH (08:11)
--- NOTE | 2021-02-24 09:46 | PROVIDER PROGRESS NOTE ---
Subjective - Prog Note Date Prog Note Date: 02/24/21 - Subjective Pt reports feeling: Improved (feels well. denies fever, abdominal pain, rectal pain, nausea) Objective - Vital Signs/Intake & Output Reviewed Vital Signs: Yes Vital Signs: Vital Signs x48h Temp Pulse Resp BP Pulse Ox 02/24/21 08:17 89 17 134/97 H 97 02/24/21 05:00 36.8 C 67 18 94 Intake & Output: Intake & Output 02/21/21 02/22/21 02/23/21 02/24/21 23:59 23:59 23:59 23:59 Intake Total 400 5015 865 Output Total 160 1300 Balance 240 3715 865 - Objective General Appearance: positive: No acute distress, Alert Eyes Bilateral: positive: PERRL, EOMI ENT: positive: No signs of dehydration Neck: positive: No JVD, Trachea midline Respiratory: positive: No respiratory distress Abdomen: positive: Non-tender, No distention - Lab Results Fish Bones: 02/24/21 05:36 02/24/21 05:36 Other Labs: Lab Results x24hrs 02/24/21 02/24/21 Range/Units 05:36 05:36 WBC 3.7 L (4.8-10.8) x10^3/uL RBC 4.91 (4.70-6.10) 10^6/uL Hgb 14.9 (14.0-18.0) g/dL Hct 45.3 (42.0-52.0) % MCV 92.3 (80.0-94.0) fL MCH 30.3 (27.0-31.0) pg MCHC 32.9 (32.0-36.0) g/dL RDW 12.9 (12.0-15.0) % Plt Count 120 L (130-450) 10^3/uL MPV 10.6 (7.4-11.4) fL Neut # (Auto) 2.3 (1.5-6.6) 10^3/uL Lymph # (Auto) 0.7 L (1.5-3.5) 10^3/uL [place] # (Auto) 0.7 (0.0-1.0) 10^3/uL Eos # (Auto) 0.0 (0.0-0.7) 10^3/uL Baso # (Auto) 0.0 (0.0-0.1) 10^3/uL Absolute Nucleated RBC 0.00 x10^3/uL Nucleated RBC % 0.0 /100WBC Sodium 138 (135-145) mmol/L Potassium 3.4 L (3.5-5.0) mmol/L Chloride 103 (101-111) mmol/L Carbon Dioxide 26 (21-32) mmol/L Anion Gap 9.0 (6-13) BUN 13 (6-20) mg/dL Creatinine 0.8 (0.6-1.2) mg/dL Estimated GFR (MDRD) 96 (>89) Glucose 106 H (70-100) mg/dL Calcium 8.5 (8.5-10.3) mg/dL Magnesium 2.0 (1.7-2.8) mg/dL C-Reactive Protein 4.6 H (0-1.0) mg/dL Sepsis Event Note (H) - Evaluation Current Stage of Sepsis: Sepsis Possible source of Sepsis: positive: GI tract/intra-abdominal, Skin/soft tissue - Sepsis Criteria Sepsis Criteria: Recorded Temperature greater than 38.3C or Less than 36C, Recorded Heart Rate greater than 90 bpm, WBC count greater than 12,000 or less than 4000 Assessment/Plan - Problem List (2) Fever Impression: doing well. follow up surgery office. plan follow up ct for small low pelvic mass in 3 to 6 months out patient colonoscopy as indicated
--- NOTE | 2021-02-24 15:25 | PROVIDER PROGRESS NOTE ---
Assessment/Plan - Problem List (1) Sepsis Assessment/Plan: 42, Patient has no fever, WBC became 3.7 today, blood culture Continue for bacteremia. Patient reported he feel better. 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 Patient had a fever and elevated WBC, it is suspicious infection resource. Surgery will not plan to have colonoscopy at this point, per surgeon, pt may follow up with colonoscopy as out patient (3) Seizure disorder Conclusion/Plan: Stable. Continue Keppra. (4) History of stroke Conclusion/Plan: We will continue aspirin, Plavix, continue statin. (5) Dementia stable, Appears to be at his baseline from a dementia standpoint. consult with social work, pt may return to [facility] after he is stable. - Current Meds Current Meds: Current Medications Generic Name Dose Route Start Last Admin Trade Name Freq PRN Reason Stop Dose Admin Atorvastatin Calcium 10 mg 02/23/21 21:00 02/23/21 20:49 Atorvastatin 10 Mg Tablet PO 10 mg QPM TIANNA Administration Enoxaparin Sodium 40 mg 02/23/21 09:00 02/24/21 08:11 Enoxaparin 40 Mg/0.4 Ml Syringe SUBQ 40 mg DAILY TIANNA Administration Ceftriaxone Sodium 2 gm/ 100 mls @ 200 mls/hr 02/23/21 09:00 02/24/21 09:01 Sodium Chloride IV Infused DAILY TIANNA Infusion Metronidazole 500 mg in 100 mls @ 100 mls/hr 02/23/21 08:00 02/24/21 10:56 Flagyl 500 Mg/100 Ml IV Infused Q8H TIANNA Infusion Levetiracetam 1,000 mg 02/23/21 09:00 02/24/21 08:09 Levetiracetam 250 Mg Tablet PO 1,000 mg BID TIANNA Administration Sodium Chloride 10 ml 02/23/21 09:00 02/24/21 09:01 Sodium Chloride Flush 0.9% 10 Ml Syringe IVP 10 ml 0100,0900,1700 TIANNA Administration - Lab Result Fish Bone Diagrams: 02/24/21 05:36 02/24/21 05:36 - Additional Planning My Orders: My Active Orders 02/24/21 Breakfast Soft (Low Fiber) Diet [DIET] 02/24/21 07:58 Out of bed 3+ hours today [RC] TID 02/24/21 09:16 Out of bed 3+ hours today [RC] TID 02/25/21 05:00 CRP - C-REACTIVE PROTEIN [CHEM] DAILYLAB 02/26/21 05:00 CRP - C-REACTIVE PROTEIN [CHEM] DAILYLAB Subjective - Subjective Patient Reports: Feeling Better Objective Vital Signs: Vital Signs - 24 hr 02/23/21 02/23/21 02/24/21 16:06 19:25 00:26 Temperature 37.1 C 37.1 C 37.3 C Heart Rate [ 89 72 76 Brachial] Respiratory 18 20 18 Rate Blood Pressure [Left Brachial artery] Blood Pressure 152/92 H 151/97 H 133/86 H [Right Brachial artery] O2 Saturation 95 97 93 02/24/21 02/24/21 02/24/21 05:00 08:17 13:00 Temperature 36.8 C 36.7 C Heart Rate [ 67 89 71 Brachial] Respiratory 18 17 16 Rate Blood Pressure 134/97 H 152/105 H [Left Brachial artery] Blood Pressure [Right Brachial artery] O2 Saturation 94 97 97 Oxygen O2 Source [With Activity] Room air O2 Source [Without Activity] Room air O2 Source Room air I&O (Last 24 Hrs): Intake and Output Totals x24h 02/22/21 02/23/21 02/24/21 23:59 23:59 23:59 Intake Total 400 5015 2045 Output Total 160 1300 200 Balance 240 3715 1845 General: Alert, Cooperative, No acute distress HEENT: Atraumatic Neck: Supple Lymphatic: no adenopathy Neuro: Alert, Non Focal Cardiovascular: Regular rate, Normal S1, Normal S2 Respiratory: Chest non-tender, No respiratory distress Abdomen: Normal bowel sounds, Soft Extremities: Normal pulses - Results Results: Laboratory Results WBC 3.7 x10^3/uL (4.8-10.8) L 02/24/21 05:36 RBC 4.91 10^6/uL (4.70-6.10) 02/24/21 05:36 Hgb 14.9 g/dL (14.0-18.0) 02/24/21 05:36 Hct 45.3 % (42.0-52.0) 02/24/21 05:36 MCV 92.3 fL (80.0-94.0) 02/24/21 05:36 MCH 30.3 pg (27.0-31.0) 02/24/21 05:36 MCHC 32.9 g/dL (32.0-36.0) 02/24/21 05:36 RDW 12.9 % (12.0-15.0) 02/24/21 05:36 Plt Count 120 10^3/uL (130-450) L 02/24/21 05:36 MPV 10.6 fL (7.4-11.4) 02/24/21 05:36 Neut # (Auto) 2.3 10^3/uL (1.5-6.6) 02/24/21 05:36 Lymph # (Auto) 0.7 10^3/uL (1.5-3.5) L 02/24/21 05:36 [place] # (Auto) 0.7 10^3/uL (0.0-1.0) 02/24/21 05:36 Eos # (Auto) 0.0 10^3/uL (0.0-0.7) 02/24/21 05:36 Baso # (Auto) 0.0 10^3/uL (0.0-0.1) 02/24/21 05:36 Absolute Nucleated RBC 0.00 x10^3/uL 02/24/21 05:36 Nucleated RBC % 0.0 /100WBC 02/24/21 05:36 Sodium 138 mmol/L (135-145) 02/24/21 05:36 Potassium 3.4 mmol/L (3.5-5.0) L 02/24/21 05:36 Chloride 103 mmol/L (101-111) 02/24/21 05:36 Carbon Dioxide 26 mmol/L (21-32) 02/24/21 05:36 Anion Gap 9.0 (6-13) 02/24/21 05:36 BUN 13 mg/dL (6-20) 02/24/21 05:36 Creatinine 0.8 mg/dL (0.6-1.2) 02/24/21 05:36 Estimated GFR (MDRD) 96 (>89) 02/24/21 05:36 Glucose 106 mg/dL (70-100) H 02/24/21 05:36 Lactic Acid 1.4 mmol/L (0.5-2.2) 02/22/21 22:03 Calcium 8.5 mg/dL (8.5-10.3) 02/24/21 05:36 Magnesium 2.0 mg/dL (1.7-2.8) 02/24/21 05:36 Total Bilirubin 0.8 mg/dL (0.2-1.0) 02/22/21 22:03 AST 30 IU/L (10-42) 02/22/21 22:03 ALT 26 IU/L (10-60) 02/22/21 22:03 Alkaline Phosphatase 95 IU/L (42-121) 02/22/21 22:03 C-Reactive Protein 4.6 mg/dL (0-1.0) H 02/24/21 05:36 Total Protein 6.9 g/dL (6.7-8.2) 02/22/21 22:03 Albumin 4.2 g/dL (3.2-5.5) 02/22/21 22:03 Globulin 2.7 g/dL (2.1-4.2) 02/22/21 22:03 Albumin/Globulin Ratio 1.6 (1.0-2.2) 02/22/21 22:03 Urine Color YELLOW 02/22/21 22:30 Urine Clarity CLEAR (CLEAR) 02/22/21 22:30 Urine pH 6.5 PH (5.0-7.5) 02/22/21 22:30 Ur Specific [place] 1.015 (1.002-1.030) 02/22/21 22:30 Urine Protein NEGATIVE mg/dL (NEGATIVE) 02/22/21 22:30 Urine Glucose (UA) NEGATIVE mg/dL (NEGATIVE) 02/22/21 22:30 Urine Ketones NEGATIVE mg/dL (NEGATIVE) 02/22/21 22:30 Urine Occult Blood NEGATIVE (NEGATIVE) 02/22/21 22:30 Urine Nitrite NEGATIVE (NEGATIVE) 02/22/21 22:30 Urine Bilirubin NEGATIVE (NEGATIVE) 02/22/21 22:30 Urine Urobilinogen 0.2 (NORMAL) E.U./dL (NORMAL) 02/22/21 22:30 Ur Leukocyte Esterase NEGATIVE (NEGATIVE) 02/22/21 22:30 Urine RBC 0-5 /HPF (0-5) 02/22/21 22:30 Urine WBC 0-3 /HPF (0-3) 02/22/21 22:30 Ur Squamous Epith Cells NONE SEEN (<= Few) 02/22/21 22:30 Urine Bacteria None Seen /HPF (None Seen) 02/22/21 22:30 Urine Culture Comments NOT INDICATED 02/22/21 22:30 Nasal Adenovirus (PCR) NOT DETECTED 02/22/21 23:03 Nasal B. parapertussis DNA (PCR) NOT DETECTED 02/22/21 23:03 Nasal Coronavir 229E PCR NOT DETECTED 02/22/21 23:03 Nasal Coronavir HKU1 PCR NOT DETECTED 02/22/21 23:03 Nasal Coronavir NL63 PCR NOT DETECTED 02/22/21 23:03 Nasal Coronavir OC43 PCR NOT DETECTED 02/22/21 23:03 Nasal Enterovir/Rhinovir PCR NOT DETECTED 02/22/21 23:03 Nasal Influenza B PCR NOT DETECTED 02/22/21 23:03 Nasal Influenza A PCR NOT DETECTED 02/22/21 23:03 Nasal Parainfluen 1 PCR NOT DETECTED 02/22/21 23:03 Nasal Parainfluen 2 PCR NOT DETECTED 02/22/21 23:03 Nasal Parainfluen 3 PCR NOT DETECTED 02/22/21 23:03 Nasal Parainfluen 4 PCR NOT DETECTED 02/22/21 23:03 Nasal RSV (PCR) NOT DETECTED 02/22/21 23:03 Nasal B.pertussis DNA PCR NOT DETECTED 02/22/21 23:03 Nasal C.pneumoniae (PCR) NOT DETECTED 02/22/21 23:03 Rolando Human Metapneumo PCR NOT DETECTED 02/22/21 23:03 Nasal M.pneumoniae (PCR) NOT DETECTED 02/22/21 23:03 Nasal SARS-CoV-2 (PCR) NOT DETECTED 02/22/21 23:03 Sepsis Event Note (H) - Evaluation Current Stage of Sepsis: Sepsis Possible source of Sepsis: positive: GI tract/intra-abdominal, Skin/soft tissue - Sepsis Criteria Sepsis Criteria: Recorded Temperature greater than 38.3C or Less than 36C, Recorded Heart Rate greater than 90 bpm, WBC count greater than 12,000 or less than 4000 ABX Reporting Has patient been on IV antibiotics over the past 48 hours?: Yes Current Medications - Current Medications Current Medications: Active Medications Acetaminophen (Acetaminophen 325 Mg Tablet) 650 mg PO Q4HR PRN PRN Reason: Pain or Fever > 38C (100.4F) Aspirin (Aspirin Ec 81 Mg Tablet) 81 mg PO DAILY [facility] Atorvastatin Calcium (Atorvastatin 10 Mg Tablet) 10 mg PO QPM [facility] Last Admin: 02/23/21 20:49 Dose: 10 mg Documented by: Clopidogrel Bisulfate (Clopidogrel 75 Mg Tablet) 75 mg PO DAILY [facility] Enoxaparin Sodium (Enoxaparin 40 Mg/0.4 Ml Syringe) 40 mg SUBQ DAILY [facility] Last Admin: 02/24/21 08:11 Dose: 40 mg Documented by: Ceftriaxone Sodium 2 gm/ (Sodium Chloride) 100 mls @ 200 mls/hr IV DAILY [facility] Last Infusion: 02/24/21 09:01 Dose: Infused Documented by: Metronidazole (Flagyl 500 Mg/100 Ml) 500 mg in 100 mls @ 100 mls/hr IV Q8H [facility] Last Infusion: 02/24/21 10:56 Dose: Infused Documented by: Levetiracetam (Levetiracetam 250 Mg Tablet) 1,000 mg PO BID [facility] Last Admin: 02/24/21 08:09 Dose: 1,000 mg Documented by: Ondansetron HCl (Ondansetron 4 Mg/2 Ml Vial) 4 mg IVP Q6HR PRN PRN Reason: Nausea / Vomiting Sodium Chloride (Sodium Chloride Flush 0.9% 10 Ml Syringe) 10 ml IVP PRN PRN PRN Reason: NEEDED PER PROVIDER ORDERS Sodium Chloride (Sodium Chloride Flush 0.9% 10 Ml Syringe) 10 ml IVP 0100 ,0900,1700 [facility] Last Admin: 02/24/21 09:01 Dose: 10 ml Documented by: Clopidogrel [Plavix] 75 mg PO DAILY 12/25/15 Simvastatin 20 mg PO DAILY 12/25/15 Meclizine HCl [Motion Sickness Relief] 25 mg PO Q6H PRN 04/08/19 Aspirin [Aspirin EC] 81 mg PO DAILY 02/23/21 Cholecalciferol (Vitamin D3) [Vitamin D3] 50 mcg PO DAILY 02/23/21 Levetiracetam [Keppra] 1,000 mg PO BID 02/23/21 traZODone [Desyrel] 50 mg PO QPM 02/23/21
[2021-02-24] MEDS: ASPIRIN EC 81 MG TABLET PO SCH (16:42)
[2021-02-24] MEDS: CLOPIDOGREL 75 MG TABLET PO SCH (16:42)
[2021-02-24] MEDS: ATORVASTATIN 10 MG TABLET PO SCH (21:16)
[2021-02-25 06:09] LABS: BASOPHILS # (AUTO) 0.1 10^3/uL (0.0-0.1); EOSINOPHILS # (AUTO) 0.2 10^3/uL (0.0-0.7); EOSINOPHILS % (AUTO) 3.3 %; HCT - HEMATOCRIT 46.9 % (42.0-52.0); HGB - HEMOGLOBIN 15.7 g/dL (14.0-18.0); LYMPHOCYTES # (AUTO) 1.1 10^3/uL (1.5-3.5); MEAN CORPUSCULAR HEMOGLOBIN 30.3 pg (27.0-31.0); MEAN CORPUSCULAR HGB CONC 33.5 g/dL (32.0-36.0); MEAN CORPUSCULAR VOLUME 90.5 fL (80.0-94.0); MEAN PLATELET VOLUME 10.7 fL (7.4-11.4); MONOCYTES % (AUTO) 20.7 %; NEUTROPHILS # (AUTO) 2.5 10^3/uL (1.5-6.6); NEUTROPHILS % (AUTO) 51.6 %; PLT - PLATELET COUNT 143 10^3/uL (130-450); RED BLOOD COUNT 5.18 10^6/uL (4.70-6.10); RED CELL DISTRIBUTION WIDTH 12.7 % (12.0-15.0); WHITE BLOOD COUNT 4.8 x10^3/uL (4.8-10.8)
[2021-02-25 06:25] LABS: CALCIUM 8.7 mg/dL (8.5-10.3); CREATININE 0.9 mg/dL (0.6-1.2); CRP - C-REACTIVE PROTEIN 2.3 mg/dL (0-1.0); MAGNESIUM 2.1 mg/dL (1.7-2.8); POTASSIUM 3.4 mmol/L (3.5-5.0)
[2021-02-25] MEDS ORDERED: POTASSIUM CHLORIDE 20 MEQ TABLET PO ONE ×2 (06:43→10:52)
[2021-02-25] MEDS: ASPIRIN EC 81 MG TABLET PO SCH (08:00)
[2021-02-25] MEDS: levETIRAcetam 250 MG TABLET PO SCH (08:00)
[2021-02-25] MEDS: CLOPIDOGREL 75 MG TABLET PO SCH (08:01)
[2021-02-25] MEDS: cefTRIAXone 2 GM in SODIUM CHLORIDE 0.9% MINIBAG 100 ML IV SCH (08:02)
[2021-02-25] MEDS: SODIUM CHLORIDE FLUSH 0.9% 10 ML SYRINGE IVP SCH (08:05)
[2021-02-25] MEDS: ENOXAPARIN 40 MG/0.4 ML SYRINGE SUBQ SCH (08:07)
[2021-02-25] MEDS: metroNIDAZOLE 500 MG/100 ML 500 MG/100 ML BAG IV SCH (08:40)
--- NOTE | 2021-02-25 10:31 | Discharge Plan ---
"Discharge Plan for SNF / [facility] - Discharge Plan And Transition Orders Problem Reviewed?: Yes Disposition: 01 Home, Self Care Condition: Stable Allergies and Adverse Reactions: Allergies Allergy/AdvReac Type Severity Reaction Status Date / Time No Known Drug Allergies Allergy Verified 02/28/16 10:30 Health Concerns: He almost passed out due to weakness and not feeling well. When he came to the emergency room he was found to have infection with fever, elevated white cell count, and a slightly low blood pressure. Evaluation for infection with a CAT scan of the abdomen showed him to have a perirectal mass or infection. He has responded to antibiotic therapy. He is feeling normal now. Blood pressure is normal, white cell count is normal. General surgery has seen the patient and would like to see the patient in the outpatient setting for follow-up of this rectal mass. Plan of Treatment: 1. To complete antibiotic therapy with Flagyl and Cipro. He will need to take these antibiotics for 4 more days. 2. To follow-up with general surgery about what to do with the rectal mass Care Goals: As stated in plan Assessment: Patient understands follow-up. Promises that he will follow through. I warned him that we wanted to make sure he did not have rectal cancer and he stated that he understood and again promised to follow through with general surgery - SNF / ASSISTED Transition Orders Admit to (Facility): [facility] Under the care of (Name): Hermila Winters MD Discharge Diagnosis: 1. Sepsis resolved 2. Rectal mass 3. History of seizure disorder 4. 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 Dementia without behavioral disorder Weight on admission and: Monthly Other Notification Orders: Call PCP immediately if patient develops dyspnea, chest pain/tightness or edema. Additional Bowel Program Orders: If no BM after 2 days, nurse may give M.O.M. 30ml PO PRN and/or ducolax Supp 1 IN and/or MARCO 250mg P.O., and/or senna 1-2 tabs PO. On day 3 nurse may give repeat above order until residents constipation is resolved. Annual Influenza Vaccine (between Jul 26 and February 22): Yes Two-step PPD per [facility] [id number] or approved exception documents: Yes Medication Orders: PLEASE REFER TO THE DISCHARGE MEDICATION LIST. Insulin Orders?: No - Medications New Prescriptions: Ciprofloxacin [Cipro] 500 mg PO Q12H #16 tablet metroNIDAZOLE [Flagyl] 500 mg PO Q8H #24 tablet - Diet Type: Geriatric Texture: Regular Liquids: Thin May have monthly special meal: Yes - Therapies | Activity Activity: Activity as Tolerated Follow Up: Please see your primary care provider in the next 2 to 3 weeks. Letter know that you were in the hospital so that she can review those records. Please follow-up with Dr. Collin Lara in the next 2 to 3 weeks so that he can do follow-up on the rectal mass that you have."
--- NOTE | 2021-02-25 10:47 | DISCHARGE SUMMARY ---
"Discharge Summary Admit Date: 02/23/21 Discharge Date: 02/25/21 Discharging Provider: Ashlee Steward MD Primary Care Provider: Hermila Winters MD Code Status: Attempt Resuscitation Condition at Discharge: Stable Discharge Disposition: 01 Home, Self Care - DIAGNOSES Discharge Diagnoses with Status of Each Condition: 1. Sepsis resolved 2. Rectal mass 3. History of seizure disorder 4. 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 Dementia without behavioral disorder 6. Hypokalemia - HPI History of Present Illness: This is a pleasant 70-year-old male with a past medical history significant for dementia, seizure disorder, stroke who presents today from walking home due to increasing generalized weakness. The patient reports he has felt weak for the past few days and today he nearly fell when trying to go to the bathroom. He states he feels well otherwise. He reports he does feel dizzy but this is chronic for him and that he feels dizzy / and this has been present for 5 years. He denies any fevers or chills. Reports no abdominal pain, nausea, vomiting. Denies chest pain, dyspnea, cough. Reports no dysuria, urgency, frequency, hematuria. Denies any blood in his stool. Reports no back pain, neck pain. He denies ever having a colonoscopy. He reports having no surgeries. He currently denies having any pain whatsoever. He states this feels a little weak and actually feels better since he has been here in the emergency department. He denies any focal deficits. In the emergency department, he was found to be febrile with a temperature of 38.9 C. He was initially tachycardic with heart rates in the 110s to 120s. He was normotensive. He was not tachypneic and saturating well on room air. Labs were significant for a white count of 12.3 with a left shift. Lactic acid was normal. Urinalysis was unremarkable. Respiratory PCR panel was also unremarkable. He underwent a CT of the abdomen and pelvis which was concerning for possible right perirectal mass which could be neoplasm or infection. Given the above findings, medicine was consulted for admission. He did receive cefepime and Flagyl IV in the emergency department. He also received 2 L of IV fluids and acetaminophen. I did discuss goals of care with the patient and he would like to be a DNR. - Past Medical History Cardiovascular: reports: Hypertension, High cholesterol Respiratory: reports: None Neuro: reports: Dementia, CVA, TIA, Seizure disorder Endocrine/Autoimmune: reports: None GI: reports: None : reports: None HEENT: reports: None Psych: reports: Depression Musculoskeletal: reports: None Derm: reports: None MRSA Hx?: No Other Past Medical History: vertigo - CONSULTS | PROCEDURES Consultations: General surgery, Collin Lara Procedures: 1. Chest x-ray with low lung volumes bilaterally. No focal airspace disease and no acute cardiopulmonary changes. 2. Abdomen/pelvis CT with a right-sided urinary bladder diverticulum containing a stone. No perivesicular stranding. No pelvic adenopathy. A small fat- containing left inguinal hernia without acute inflammation. There is a lobular 1.6 x 3.5 cm right perirectal mass which is more hypodense centrally. Suggestion of minimal peripheral stranding. 3. Blood cultures, 2 sets, negative after 2 days. - HOSPITAL COURSE Hospital Course: The patient was treated with IV antibiotics because of his sepsis criteria. Blood cultures were negative. CT the abdomen showed a possible perirectal abscess. General surgery was consulted and Dr. Lara feels that the patient does not necessarily have a perirectal abscess. He will, however, need follow- up. Since the patient responded to IV antibiotic therapy and was doing well, the recommendation was to transition to oral meds. Dr. Lara would see the patient in the outpatient setting. Patient did have hypokalemia during his stay which was treated with supplemental p.o. potassium. On the day of discharge she received 1 more 40 mEq dose. By the day of discharge the patient is ambulating in the room. Eating his meals. No rectal pain. Anxious to go home. He is 5 foot 9 inches tall and weighs 74.5 kg. Well-nourished well-developed stocky male who looks his stated age. Temperature is 36.9, pulse is 82, blood pressure 138/97. Respirations 16 and is 96% on room air. He is sitting in his chair in his room. I watched him get up and ambulate to go look at the window. Get back in his chair. Speech is lucid. Affect is that of a slightly depressed man who sees the glass half full. Neck is supple without adenopathy. Lungs are clear to auscultation and percussion. PMI is normally placed. Abdomen is soft, nontender, no organomegaly. Extremities without edema and is ambulating without any ataxia or assist needed. Greater than 30 minutes was spent coordinating discharge. I have sent prescriptions of Cipro and Flagyl to complete 4 more days of antibiotic therapy to the [facility]. This document was made in part using voice recognition software. While efforts are made to proofread this document, sound alike and grammatical errors may occur. - ALLERGIES Allergies/Adverse Reactions: Allergies Allergy/AdvReac Type Severity Reaction Status Date / Time No Known Drug Allergies Allergy Verified 02/28/16 10:30 - MEDICATIONS Home Medications: Ambulatory Orders Medication Instructions Recorded Confirmed Clopidogrel [Plavix] 75 mg PO DAILY 12/25/15 02/23/21 Simvastatin 20 mg PO DAILY 12/25/15 02/23/21 Meclizine HCl [Motion Sickness 25 mg PO Q6H PRN 04/08/19 02/23/21 Relief] Aspirin [Aspirin EC] 81 mg PO DAILY 02/23/21 02/23/21 Cholecalciferol (Vitamin D3) 50 mcg PO DAILY 02/23/21 02/23/21 [Vitamin D3] Levetiracetam [Keppra] 1,000 mg PO BID 02/23/21 02/23/21 traZODone [Desyrel] 50 mg PO QPM 02/23/21 02/23/21 Ciprofloxacin [Cipro] 500 mg PO Q12H #16 tablet 02/25/21 metroNIDAZOLE [Flagyl] 500 mg PO Q8H #24 tablet 02/25/21 - LABS Result Diagrams: 02/25/21 05:08 02/25/21 05:08 - SEPSIS Current Stage of Sepsis: Resolved Possible source of Sepsis: GI tract/intra-abdominal, Skin/soft tissue Sepsis Criteria: Recorded Temperature greater than 38.3C or Less than 36C, Recorded Heart Rate greater than 90 bpm, WBC count greater than 12,000 or less than 4000"
[2021-02-25 11:30] VITALS: BP 121/87
--- OUTSIDE RECORDS SUMMARY | 2021-03-01 00:19 | EXTERNAL MEDICAL SUMMARY RPT | Continuity of Care Document ---
:1950 Demographics Phone Unavailable Preferred Language Unknown Marital Status Unknown Yazidi Affiliation Unknown Race Unknown Ethnic Group Unknown Author Organization [place] Address [address] [place] [address] Phone Social History date description facility [phone]
== END 2021-02-25 13:00 | disposition home or self-care (01) | DRG 872 ==
LOC: EDUNIT# → ED 21:36 → MS3 02-23 01:38
PROVIDERS: ADMIT Internal Medicine; ATTEND Specialist
DX: A41.9 Sepsis, unspecified organism (principal); R65.10 Systemic inflammatory response syndrome (SIRS) of non-infectious origin without acute organ dysfunction; K62.89 Other specified diseases of anus and rectum; Z20.822 Contact with and (suspected) exposure to COVID-19; R50.9 Fever, unspecified; G40.909 Epilepsy, unspecified, not intractable, without status epilepticus; R11.0 Nausea; F03.90 Unspecified dementia, unspecified severity, without behavioral disturbance, psychotic disturbance, mood disturbance, and anxiety; I69.319 Unspecified symptoms and signs involving cognitive functions following cerebral infarction; E87.6 Hypokalemia; I10 Essential (primary) hypertension; E78.00 Pure hypercholesterolemia, unspecified; Z66 Do not resuscitate; F32.9 Major depressive disorder, single episode, unspecified; R53.1 Weakness; Z79.899 Other long term (current) drug therapy
CPT/HCPCS: 36415; 71045; 74177; 80048; 80053; 80177; 81001; 83605; 83735; 85025; 86140; 87040; 87631; 93005; 96365; 96375; 99284; 99285; A9270; J1650; J7120; Q9967; 0202U; 87086

== ENCOUNTER 2021-03-22 07:41 | Outpatient (CLI) | payer MEDICARE, MEDICAID ==
[2021-03-22 08:36] LABS: CREATININE 0.8 mg/dL (0.6-1.2)
[2021-03-22] MEDS ORDERED: GADOBUTROL 10 MMOL/10 ML VIAL ONE (08:39)
[2021-03-22] MEDS ORDERED: GADOBUTROL 10 MMOL/10 ML VIAL IVP ONE (09:39)
--- NOTE | 2021-03-22 10:46 | MRI Report ---
PROCEDURE: Brain W/WO INDICATIONS: VERTIGO CONTRAST: IV CONTRAST: Gadavist ml: 7.5 TECHNIQUE: Noncontrast axial T1 spin echo, axial T2 fast spin echo, sagittal and axial FLAIR, coronal T2 fast sp in echo, axial gradient echo, axial diffusion and ADC through the brain. After the administration of contrast, axial and coronal T1 spin echo with fat saturation through the brain. COMPARISON: Correlation is made with prior head CT examinations, 04/08/2019 and 12/25/2015. FINDINGS: Image quality: Excellent. CSF spaces: Basal cisterns are patent. No extra-axial fluid collections. Ventricles are normal in size and shape. Brain: No midline shift. No intracranial bleeds or masses. No abnormal intracranial enhancement. There is cerebral volume loss for age. There is periventricular white matter chronic small vessel is chemic change. The brainstem appears normal. Diffusion-weighted images demonstrate no acute ischemi c insults. There is a chronic, stable right occipital infarction seen. Normal intravascular flow voi ds are present. In this patient with this given history, scrutiny is given to the cerebellopontine angle cisterns and to the internal auditory canals. To the limits of this standard protocol study, no masses or abnorma l enhancement can be seen within these regions. Skull and face: Calvarial marrow is normal in signal. Orbits appear normal. Incidental note is ma de of bilateral lens replacements. Sinuses: Sinuses and mastoids appear clear. IMPRESSION: A cause of vertigo is not identified on this study. There is a remote, stable right occipital lobe infarction seen. Incidental note is made of: Brain parenchymal volume loss and chronic small vessel ischemic change Bilateral lens replacements Reviewed by: Onur Alonzo MD on 03/22/2021 9:45 AM YAMILE Approved by: Onur Alonzo MD on 03/22/2021 9:45 AM YAMILE Station ID: [id number]
== END 2021-03-22 07:42 | disposition home or self-care (01) ==
LOC: DI 07:41
PROVIDERS: ATTEND Internal Medicine
DX: R42 Dizziness and giddiness (principal); Z79.899 Other long term (current) drug therapy
CPT/HCPCS: 36415; 70553; 82565; A9585

== ENCOUNTER 2021-05-12 08:53 | Day surgery (SDC) | payer MEDICARE, MEDICAID ==
[2021-05-12] MEDS ORDERED: LACTATED RINGERS 1,000 ML IV ONE (09:21)
--- NOTE | 2021-05-12 11:05 | HISTORY & PHYSICAL EXAMINATION ---
Chief Complaint - Chief Complaint Chief Complaint: here for colon cancer screening History of Present Illness - History Obtained From Records Reviewed: yes History obtained from: pt Exam Limitations: none - History of Present Illness HPI Comment/Other: Here for colon cancer screening. No GI symptoms History - Past Medical History Cardiovascular: reports: Hypertension, High cholesterol Respiratory: reports: None Neuro: reports: Dementia, CVA, TIA, Seizure disorder Endocrine/Autoimmune: reports: None GI: reports: None, Other : reports: None HEENT: reports: None Psych: reports: Depression Musculoskeletal: reports: None Derm: reports: None MRSA Hx?: No - Family & Social History Family History Comment/Other: He reports he has an older brother with dementia. He had another brother who from a myocardial infarction. His father also from heart disease. He denies a history of cancer. Social History Notes: He lives at [facility] in [place]. He is a non- smoker. He will drink a couple of alcoholic beverages every few days. He previously worked at the [employer] in [employer] for 15 years. - POLST Patient has POLST: Yes Meds/Allgy - Home Medications Home Medications: Ambulatory Orders Medication Instructions Recorded Confirmed Clopidogrel [Plavix] 75 mg PO DAILY 12/25/15 05/11/21 Simvastatin 20 mg PO DAILY 12/25/15 05/11/21 Meclizine HCl [Motion Sickness 25 mg PO Q6H PRN 04/08/19 05/11/21 Relief] Aspirin [Aspirin EC] 81 mg PO DAILY 02/23/21 05/11/21 Cholecalciferol (Vitamin D3) 50 mcg PO DAILY 02/23/21 05/11/21 [Vitamin D3] Levetiracetam [Keppra] 1,000 mg PO BID 02/23/21 05/11/21 traZODone [Desyrel] 50 mg PO QPM 02/23/21 05/11/21 - Allergies Allergies/Adverse Reactions: Allergies Allergy/AdvReac Type Severity Reaction Status Date / Time No Known Drug Allergies Allergy Verified 02/28/16 10:30 Review of Systems - Other Findings Other Findings: 10 pt ros as above otherwise unremarkable Exam - Vital Signs Reviewed Vital Signs: Yes Vital Signs: Vital Signs x48h Temp Pulse Resp BP Pulse Ox 05/12/21 09:10 36.6 C 60 18 164/108 H 100 - Physical Exam General Appearance: positive: Alert, Mild distress Eyes Bilateral: positive: PERRL, EOMI ENT: positive: No signs of dehydration Neck: positive: No JVD Respiratory: positive: Breath sounds nml Cardiovascular: positive: Regular rate & rhythm Abdomen: positive: Non-tender, No distention Neurologic/Psychiatric: positive: Oriented x3 Conclusion/Plan - Problem List (1) Colon cancer screening Conclusion/Plan: Plan colonoscopy. parq held and consent obtained. Follow up ct next month for small mass outside of his rectum
[2021-05-12] MEDS ORDERED: fentaNYL 250 MCG/5 ML VIAL ONE (11:06)
[2021-05-12] MEDS ORDERED: MIDAZOLAM 2 MG/2 ML VIAL ONE ×3 (11:06→11:30)
[2021-05-12] MEDS ORDERED: LACTATED RINGERS 100 ML IV ONE (12:00)
[2021-05-12 12:32] VITALS: BP 144/98
== END 2021-05-12 08:54 | disposition home or self-care (01) ==
LOC: SDS 08:53
PROVIDERS: ATTEND Surgery
PROC: 0DBK8ZX Excision of Ascending Colon, Via Natural or Artificial Opening Endoscopic, Diagnostic (ICD-10-PCS; principal; 2021-05-12 10:30)
DX: Z12.11 Encounter for screening for malignant neoplasm of colon (principal); D12.2 Benign neoplasm of ascending colon; D12.0 Benign neoplasm of cecum; D12.4 Benign neoplasm of descending colon; D12.5 Benign neoplasm of sigmoid colon; D12.3 Benign neoplasm of transverse colon; I10 Essential (primary) hypertension; E78.00 Pure hypercholesterolemia, unspecified; F03.90 Unspecified dementia, unspecified severity, without behavioral disturbance, psychotic disturbance, mood disturbance, and anxiety; G40.909 Epilepsy, unspecified, not intractable, without status epilepticus; F32.9 Major depressive disorder, single episode, unspecified; Z79.02 Long term (current) use of antithrombotics/antiplatelets; Z79.82 Long term (current) use of aspirin; Z79.899 Other long term (current) drug therapy; Z86.73 Personal history of transient ischemic attack (TIA), and cerebral infarction without residual deficits
CPT/HCPCS: 45380; J3010; J7120

== ENCOUNTER 2021-07-24 11:51 | Outpatient (CLI) | payer MEDICARE, MEDICAID ==
[2021-07-24] MEDS ORDERED: IOVERSOL 320 50 ML VIAL ONE (11:58)
[2021-07-24] MEDS ORDERED: IOPAMIDOL-300 50 ML VIAL ONE (11:58)
[2021-07-24] MEDS ORDERED: IOPAMIDOL-300 50 ML VIAL IVP ONE (14:13)
[2021-07-24] MEDS ORDERED: IOVERSOL 320 50 ML VIAL PO ONE (14:13)
--- NOTE | 2021-07-24 17:20 | CT Report ---
PROCEDURE: Abdomen/Pelvis W INDICATIONS: RECTAL LESION CONTRAST: IV CONTRAST: Isovue 300 ml: 100 PO CONTRAST: Optiray 320 ml50 TECHNIQUE: After the administration of nonionic contrast, 5 mm thick sections acquired from the diaphragms to th e symphysis. 5 mm thick coronal and sagittal reformats were acquired. For radiation dose reduction, the following was used: automated exposure control, adjustment of mA and/or kV according to patient size. COMPARISON: None. FINDINGS: Image quality: Excellent. ABDOMEN: Lung bases: Lung bases are clear. Heart size is normal. Solid organs: Liver and spleen are normal in size and enhancement. Gallbladder appears normal Bili corina system is non dilated. Pancreas enhances normally. No adrenal nodules. Kidneys demonstrate nor mal size and enhancement, without hydronephrosis. Peritoneum and bowel: Bowel loops demonstrate normal wall thickness and caliber. No free fluid or a ir. Nodes and vessels: No retroperitoneal or mesenteric adenopathy by size criteria. Aorta and inferior vena cava are normal in size. Miscellaneous: No ventral hernias. PELVIS: Genitourinary: Bladder wall thickness is normal. Note is made of a small right posterior lateral bl adder wall diverticulum containing calculus, previously present without, with the calculus measuring up to 6 mm and the diverticulum itself measuring up to 1.2 cm. Miscellaneous: No inguinal hernias or adenopathy. The previously identified mildly lobulated soft t issue radiodensity external to the rectal margin at the right extraperitoneal lower pelvis is again n oted, virtually identical in appearance and morphology and size to the prior study. This structure me asures up to 1.9 x 4.4 cm in maximal oblique AP and oblique transverse dimensions, and shows no inter nal fluid content. Bones: No suspicious bony lesions. No vertebral body compression fractures. IMPRESSION: The prior extraperitoneal soft tissue mass within the fatty soft tissues at the posterio r lateral aspect of the low rectum was previously present in February 2021 and has not changed. This arg ues towards a benign etiology, and surgical consultation likely is warranted to determine whether bio psy should be attempted versus perhaps obtaining a nuclear medicine PET/CT scan to assist in further characterization of this structure and to establish benign etiology. Additionally, tissue detail util izing contrast-enhanced rectal neoplasm protocol would most accurately allow delineation of the relat ionships of the boundaries of this mass to the adjacent serosal surface of the rectum. Alternatively, follow-up CT or MR imaging over time could be utilized. Incidental note is made of a 1.2 cm bladder wall diverticulum posterolaterally on the right containin g a 6 mm intrarenal calculus. This is separate from the distal ureter. Reviewed by: Lloyd Palma MD on 07/24/2021 5:18 PM PDT Approved by: Lloyd Palma MD on 07/24/2021 5:18 PM PDT Station ID: [id number]
== END 2021-07-24 11:52 | disposition home or self-care (01) ==
LOC: LAB 11:51
PROVIDERS: ATTEND Surgery
DX: K62.89 Other specified diseases of anus and rectum (principal)
CPT/HCPCS: 74177; Q9967

== ENCOUNTER 2021-07-24 12:05 | Outpatient (CLI) | payer MEDICARE, MEDICAID | END 2021-07-24 23:59 | disposition home or self-care (01) | LOC: LAB.S 12:05 | PROVIDERS: ATTEND Surgery | DX: K62.9 Disease of anus and rectum, unspecified (principal) | CPT/HCPCS: 36415; 82565 ==

== ENCOUNTER 2022-09-17 07:52 | Outpatient (CLI) | payer MEDICARE, MEDICAID ==
[2022-09-17 13:02] LABS: ALBUMIN 4.5 g/dL (3.2-5.5); ALBUMIN/GLOBULIN RATIO 1.5 (1.0-2.2); ALKALINE PHOSPHATASE 123 IU/L (42-121); ALT ALANINE AMINOTRANSFERASE 21 IU/L (10-60); AST ASPARTATE AMINOTRANSFERASE 25 IU/L (10-42); BILIRUBIN,TOTAL 0.9 mg/dL (0.2-1.0); BUN - BLOOD UREA NITROGEN 20 mg/dL (6-20); CALCIUM 9.7 mg/dL (8.5-10.3); CARBON DIOXIDE - CO2 30 mmol/L (21-32); CHLORIDE 104 mmol/L (101-111); CHOL/HDL RATIO 4.3 (<5.0); CHOLESTEROL 181 mg/dL; CREATININE 0.9 mg/dL (0.6-1.2); GFR - MDRD 83 (>89); GLUCOSE 101 mg/dL (70-100); HDL CHOLESTEROL 42 mg/dL; LDL CHOLESTEROL,CALCULATED 119 mg/dL; LDL/HDL RATIO 2.8 (<3.6); SODIUM 143 mmol/L (135-145); TOTAL PROTEIN 7.6 g/dL (6.7-8.2); TRIGLYCERIDES 98 mg/dL; VLDL CHOLESTEROL 20 mg/dL
[2022-09-17 13:20] LABS: BASOPHILS # (AUTO) 0.1 10^3/uL (0.0-0.1); BASOPHILS % (AUTO) 0.8 %; EOSINOPHILS # (AUTO) 0.1 10^3/uL (0.0-0.7); EOSINOPHILS % (AUTO) 1.5 %; HCT - HEMATOCRIT 51.5 % (42.0-52.0); HGB - HEMOGLOBIN 16.5 g/dL (14.0-18.0); LYMPHOCYTES # (AUTO) 0.9 10^3/uL (1.5-3.5); LYMPHOCYTES % (AUTO) 14.2 %; MEAN CORPUSCULAR HEMOGLOBIN 30.2 pg (27.0-31.0); MEAN CORPUSCULAR VOLUME 94.3 fL (80.0-94.0); MONOCYTES # (AUTO) 0.6 10^3/uL (0.0-1.0); MONOCYTES % (AUTO) 10.1 %; NEUTROPHILS # (AUTO) 4.4 10^3/uL (1.5-6.6); NEUTROPHILS % (AUTO) 73.2 %; PLT - PLATELET COUNT 193 10^3/uL (130-450); RED BLOOD COUNT 5.46 10^6/uL (4.70-6.10); RED CELL DISTRIBUTION WIDTH 13.3 % (12.0-15.0)
[2022-09-17 13:34] LABS: BILIRUBIN,URINE NEGATIVE (NEGATIVE); GLUCOSE, URINE (UA) NEGATIVE (NEGATIVE); KETONES,URINE (UA) NEGATIVE (NEGATIVE); LEUKOCYTE ESTERASE, URINE NEGATIVE (NEGATIVE); NITRITE,URINE NEGATIVE (NEGATIVE); OCCULT BLOOD,URINE SMALL (NEGATIVE); PH,URINE 5.5 PH (5.0-7.5); PROTEIN,URINE NEGATIVE (NEGATIVE); UROBILINOGEN,URINE 0.2 (NORMAL) E.U./dL (NORMAL)
[2022-09-17 14:19] LABS: BACTERIA,URINE Few /HPF (None Seen); CLARITY,URINE CLEAR (CLEAR); MUCUS,URINE Few Strands; SQUAMOUS EPITHELIAL CELL,UR RARE Squamous (<= Few)
== END 2022-09-17 07:53 | disposition home or self-care (01) ==
LOC: LAB.N 07:52
PROVIDERS: ATTEND Surgery
DX: Z00.00 Encounter for general adult medical examination without abnormal findings (principal); I63.9 Cerebral infarction, unspecified; E78.5 Hyperlipidemia, unspecified; I10 Essential (primary) hypertension; G40.909 Epilepsy, unspecified, not intractable, without status epilepticus; H53.9 Unspecified visual disturbance; Z79.899 Other long term (current) drug therapy
CPT/HCPCS: 36415; 80053; 80061; 80177; 81001; 81003; 83721; 84443; 85025; 87086

== ENCOUNTER 2022-12-07 16:35 | Outpatient (CLI) | payer MEDICARE, MEDICAID | END 2022-12-07 16:36 | disposition critical access hospital (66) | LOC: EMS 16:35 | DX: R55 Syncope and collapse (principal) | CPT/HCPCS: A0425; A0427 ==

== ENCOUNTER 2022-12-07 16:58 | Emergency (ER) | payer MEDICARE, MEDICAID ==
--- NOTE | 2022-12-07 17:08 | ED Physician Documentation ---
PD HPI SYNCOPE - Stated complaint Stated Complaint: SYNCOPAL - History obtained from History obtained from: Patient, EMS - Additional information Additional information: 72-year-old gentleman with history of dementia comes from [facility] assisted living/memory unit after an episode of syncope. He was sitting down eating dinner and put his head down. He says this was because he started to feel nauseous. Then threw up once and had a syncopal episode. He says he feels better now. There is no associated chest pain or trouble breathing. Independent history taken from EMS paramedics at bedside. Prior discharge summary from this facility dated February 25 of last year reviewed. Review of Systems Constitutional: denies: Fever, Chills Cardiac: denies: Chest pain / pressure, Palpitations Respiratory: denies: Dyspnea, Cough PD PAST MEDICAL HISTORY - Past Medical History Cardiovascular: Hypertension, High cholesterol Respiratory: None Neuro: Dementia, CVA, TIA, Seizure disorder Endocrine/Autoimmune: None GI: None, Other : None HEENT: None Psych: Depression Musculoskeletal: None Derm: None - Past Surgical History Past Surgical History: No - Present Medications Home Medications: Ambulatory Orders Medication Instructions Recorded Confirmed Clopidogrel [Plavix] 75 mg PO DAILY 12/25/15 05/11/21 Simvastatin 20 mg PO DAILY 12/25/15 05/11/21 Meclizine HCl [Motion Sickness 25 mg PO Q6H PRN 04/08/19 05/11/21 Relief] Aspirin [Aspirin EC] 81 mg PO DAILY 02/23/21 05/11/21 Cholecalciferol (Vitamin D3) 50 mcg PO DAILY 02/23/21 05/11/21 [Vitamin D3] Levetiracetam [Keppra] 1,000 mg PO BID 02/23/21 05/11/21 traZODone [Desyrel] 50 mg PO QPM 02/23/21 05/11/21 - Allergies Allergies/Adverse Reactions: Allergies Allergy/AdvReac Type Severity Reaction Status Date / Time No Known Drug Allergies Allergy Verified 12/07/22 17:15 - Social History Does the pt smoke?: No Smoking Status: Never smoker Does the pt drink ETOH?: No Does the pt have substance abuse?: No - Immunizations Immunizations are current?: Yes - POLST Patient has POLST: Yes PD ED PE NORMAL - Vitals Vital signs reviewed: Yes - General General: Other (He is alert and oriented to person and place and events, not the date. He seems slightly sleepy but easily alert and arousable.) - HEENT HEENT: PERRL, EOMI - Neck Neck: Supple, no meningeal sign, No bony TTP - Cardiac Cardiac: RRR, No murmur - Respiratory Respiratory: No respiratory distress, Clear bilaterally - Abdomen Abdomen: Non tender - Derm Derm: Normal color, Warm and dry - Neuro Neuro: No motor deficit, No sensory deficit, Normal speech Eye Opening: Spontaneous Motor: Obeys Commands Verbal: Oriented GCS Score: 15 Results - Vitals Vitals: Vital Signs - 24 hr 12/07/22 17:11 Temperature 36.1 C L Heart Rate 57 L Respiratory 16 Rate Blood Pressure 131/80 H O2 Saturation 96 Oxygen O2 Source [] Room air O2 Source [] Room air O2 Source Room air - EKG (time done) 1721 Rate: Rate (enter#) (56) Rhythm: NSR [place]: Normal Intervals: RBBB QRS: Normal Ischemia: Q waves. No: ST elevation c/w ischemia, ST depression - Labs Labs: Laboratory Tests 12/07/22 12/07/22 17:31 17:31 WBC 8.2 RBC 4.82 Hgb 14.7 Hct 45.5 MCV 94.4 H MCH 30.5 MCHC 32.3 RDW 12.6 Plt Count 172 MPV 10.2 Neut # (Auto) 6.1 Lymph # (Auto) 1.1 L [place] # (Auto) 0.8 Eos # (Auto) 0.1 Baso # (Auto) 0.0 Absolute Nucleated RBC 0.00 Nucleated RBC % 0.0 Sodium 144 Potassium 3.7 Chloride 107 Carbon Dioxide 27 Anion Gap 10.0 BUN 26 H Creatinine 0.9 Estimated GFR (MDRD) 83 L Glucose 98 Calcium 8.7 Magnesium 2.0 Total Bilirubin 0.7 AST 21 ALT 18 Alkaline Phosphatase 106 Total Protein 6.8 Albumin 4.0 Globulin 2.8 Albumin/Globulin Ratio 1.4 PD Medical Decision Making - ED course Complexity details: d/w family (I tried to call the guardian agency but there was no answer.) ED course: 72-year-old gentleman after single episode of vomiting and then syncope. Given the proximity of the vomiting to syncope certainly could have been vasovagal but differential diagnosis includes arrhythmia, profound anemia from blood loss or other cause etc. EKG is normal. CBC is normal. CMP notable for mild prerenal azotemia. He will be administered some IV fluids. He is currently asymptomatic and can be safely discharged. Departure - Departure Disposition: 01 Home, Self Care Clinical Impression: Syncope Dementia Qualifiers: Dementia type: unspecified type Dementia severity: mild Dementia behavioral or psychological symptom: without behavioral, psychotic, or mood disturbance or anxiety Qualified Code(s): F03.A0 - Unspecified dementia, mild, without behavioral disturbance, psychotic disturbance, mood disturbance, and anxiety Condition: Good Record reviewed to determine appropriate education?: Yes Instructions: ED Syncope Vasovagal Comments: We found him to be mildly dehydrated with a BUN of 26. The remainder of his labs and EKG are not remarkable for any concerning changes. Return for new or worsening symptoms.
[2022-12-07 17:37] LABS: BASOPHILS % (AUTO) 0.5 %; EOSINOPHILS # (AUTO) 0.1 10^3/uL (0.0-0.7); EOSINOPHILS % (AUTO) 1.3 %; HCT - HEMATOCRIT 45.5 % (42.0-52.0); HGB - HEMOGLOBIN 14.7 g/dL (14.0-18.0); LYMPHOCYTES # (AUTO) 1.1 10^3/uL (1.5-3.5); LYMPHOCYTES % (AUTO) 13.8 %; MEAN CORPUSCULAR HEMOGLOBIN 30.5 pg (27.0-31.0); MEAN CORPUSCULAR HGB CONC 32.3 g/dL (32.0-36.0); MEAN CORPUSCULAR VOLUME 94.4 fL (80.0-94.0); MEAN PLATELET VOLUME 10.2 fL (7.4-11.4); MONOCYTES # (AUTO) 0.8 10^3/uL (0.0-1.0); MONOCYTES % (AUTO) 9.3 %; NEUTROPHILS # (AUTO) 6.1 10^3/uL (1.5-6.6); NEUTROPHILS % (AUTO) 74.9 %; PLT - PLATELET COUNT 172 10^3/uL (130-450); RED BLOOD COUNT 4.82 10^6/uL (4.70-6.10); RED CELL DISTRIBUTION WIDTH 12.6 % (12.0-15.0); WHITE BLOOD COUNT 8.2 x10^3/uL (4.8-10.8)
[2022-12-07 17:50] LABS: ALBUMIN/GLOBULIN RATIO 1.4 (1.0-2.2); BILIRUBIN,TOTAL 0.7 mg/dL (0.2-1.0); CALCIUM 8.7 mg/dL (8.5-10.3); CREATININE 0.9 mg/dL (0.6-1.2); POTASSIUM 3.7 mmol/L (3.5-5.0); TOTAL PROTEIN 6.8 g/dL (6.7-8.2)
[2022-12-07] MEDS ORDERED: SODIUM CHLORIDE 0.9% 1,000 ML IV STA (18:06)
[2022-12-07 19:10] VITALS: BP 159/108
== END 2022-12-07 19:33 | disposition home or self-care (01) ==
LOC: EDUNIT# → ED 16:58
DX: R55 Syncope and collapse (principal); E86.0 Dehydration; F03.A0 Unspecified dementia, mild, without behavioral disturbance, psychotic disturbance, mood disturbance, and anxiety
CPT/HCPCS: 36415; 80053; 83735; 85025; 93005; 96360; 99284

== ENCOUNTER 2023-02-10 08:10 | Emergency (ER) | payer MEDICARE, MEDICAID ==
[2023-02-10] MEDS ORDERED: SODIUM CHLORIDE 0.9% 1,000 ML IV STA (08:22)
[2023-02-10] MEDS ORDERED: HYDROmorphone 1 MG/ML CARPUJECT IVP STA (08:22)
[2023-02-10 08:31] LABS: BASOPHILS % (AUTO) 0.4 %; EOSINOPHILS % (AUTO) 0.4 %; HCT - HEMATOCRIT 46.9 % (42.0-52.0); HGB - HEMOGLOBIN 14.8 g/dL (14.0-18.0); LYMPHOCYTES # (AUTO) 0.6 10^3/uL (1.5-3.5); LYMPHOCYTES % (AUTO) 5.8 %; MEAN CORPUSCULAR HEMOGLOBIN 29.6 pg (27.0-31.0); MEAN CORPUSCULAR HGB CONC 31.6 g/dL (32.0-36.0); MEAN CORPUSCULAR VOLUME 93.8 fL (80.0-94.0); MEAN PLATELET VOLUME 10.3 fL (7.4-11.4); MONOCYTES # (AUTO) 0.8 10^3/uL (0.0-1.0); MONOCYTES % (AUTO) 7.8 %; NEUTROPHILS # (AUTO) 8.8 10^3/uL (1.5-6.6); NEUTROPHILS % (AUTO) 85.1 %; PLT - PLATELET COUNT 146 10^3/uL (130-450); RED CELL DISTRIBUTION WIDTH 12.1 % (12.0-15.0); WHITE BLOOD COUNT 10.3 x10^3/uL (4.8-10.8)
[2023-02-10 08:37] LABS: PT - PROTHROMBIN TIME 11.2 secs (9.9-12.6)
[2023-02-10 08:43] LABS: ALBUMIN/GLOBULIN RATIO 1.3 (1.0-2.2); CALCIUM 8.9 mg/dL (8.5-10.3); POTASSIUM 4.1 mmol/L (3.5-5.0); TOTAL PROTEIN 7.2 g/dL (6.7-8.2)
--- NOTE | 2023-02-10 08:56 | CT Report ---
PROCEDURE: HEAD WO INDICATIONS: fall/injury/anticoag TECHNIQUE: Noncontrast 4.5 mm thick angled axial sections acquired from the foramen magnum to the vertex. For r adiation dose reduction, the following was used: automated exposure control, adjustment of mA and/or kV according to patient size. COMPARISON: Head CT 04/08/2019. Brain MRI 03/22/2021. FINDINGS: Image quality: Excellent. CSF spaces: Basal cisterns are patent. No extra-axial fluid collections. Ventricles are enlarged, slightly increased compared to 2019. Brain: No midline shift. No intracranial masses or hemorrhage. No area of hypodensity in a vascula r distribution to suggest acute infarction. There is periventricular hypodensity consistent with cyber transport systems specialist tawny microvascular ischemic disease. Age-related parenchymal loss. Skull and face: Calvarium and visualized facial bones are intact, without suspicious lesions. Sinuses: Paranasal sinus mucosal thickening. Mastoids are clear. IMPRESSION: No acute intracranial abnormality. Chronic microvascular ischemic disease, progressing. Reviewed by: Flaco Winchester MD on 02/10/2023 8:55 AM PDT Approved by: Flaco Winchester MD on 02/10/2023 8:55 AM PDT Station ID: [id number]
--- NOTE | 2023-02-10 08:59 | CT Report ---
PROCEDURE: CERVICAL SPINE WO INDICATIONS: fall/injury TECHNIQUE: Noncontrast 3 mm thick sections acquired from the skull base to the T4 level. Sagittal and coronal r eformats were then constructed. For radiation dose reduction, the following was used: automated exp osure control, adjustment of mA and/or kV according to patient size. COMPARISON: None. FINDINGS: Image quality: Excellent. Bones: No fractures or dislocations. Bridging anterior osteophytes at C4-C6 resulting in ankylosis. Visualized superior ribs are intact. Soft tissues: Prevertebral soft tissues are normal in thickness. No paravertebral hematomas. No ap ical pneumothoraces. Aneurysmal dilatation of the ascending aorta measuring approximately 3.[address] cumferential atherosclerotic plaque at the carotid bulbs. IMPRESSION: No acute osseous abnormality. Reviewed by: Flaco Winchester MD on 02/10/2023 8:58 AM PDT Approved by: Flaco Winchester MD on 02/10/2023 8:58 AM PDT Station ID: [id number]
[2023-02-10] MEDS ORDERED: BUPIVACAINE 0.5% PF 10 ML VIAL SUBQ STA (09:01)
--- NOTE | 2023-02-10 09:07 | XRAY Report ---
PROCEDURE: Wrist 3 View LT INDICATIONS: fall/injury/deformity TECHNIQUE: 1 views of the wrist were acquired. COMPARISON: Forearm radiograph from same date. FINDINGS: Bones: Comminuted foreshortened distal radius and ulnar fractures with large butterfly fragment along the ventral aspect. There is posterior displacement approximately one shaft width of the distal frac ture fragments. Questionable accessory ossicle versus fracture fragment adjacent to the ulnar styloid . No suspicious bony lesions. Soft tissues: No suspicious soft tissue calcifications. Soft tissue swelling of the wrist. IMPRESSION: Comminuted angulated and foreshortened fracture of the distal radius and ulna. Reviewed by: Vic Grady MD on 02/10/2023 8:05 AM YAMILE Approved by: Vic Grady MD on 02/10/2023 8:05 AM YAMILE Station ID: [id number]
--- NOTE | 2023-02-10 09:07 | XRAY Report ---
PROCEDURE: Forearm LT INDICATIONS: fall/injury/deformity TECHNIQUE: 2 views of the forearm were acquired. COMPARISON: Wrist radiograph from same date. FINDINGS: Bones: Comminuted foreshortened distal radius and ulnar fractures with large butterfly fragment along the ventral aspect. There is posterior displacement approximately one shaft width of the distal frac ture fragments. Questionable accessory ossicle versus fracture fragment adjacent to the ulnar styloid . No suspicious bony lesions. Soft tissues: No suspicious soft tissue calcifications. Soft tissue swelling of the wrist. IMPRESSION: Comminuted angulated and foreshortened fracture of the distal radius and ulna. Reviewed by: Vic Grady MD on 02/10/2023 8:06 AM YAMILE Approved by: Vic Grady MD on 02/10/2023 8:06 AM YAMILE Station ID: [id number]
--- NOTE | 2023-02-10 11:34 | XRAY Report ---
PROCEDURE: Wrist 3 View LT INDICATIONS: post-reduction TECHNIQUE: 3 views of the wrist were acquired. COMPARISON: Same date wrist radiograph. FINDINGS: Casting material overlies the wrist limiting osseous detail. There is interval reduction of comminuted radial and ulnar fractures in improved alignment. There is mild persistent posterior disp lacement of the ulnar fragment. There is an angulated ventral osseous fragment overlying the radial f racture. IMPRESSION: Interval casting with improved alignment of comminuted radial and ulnar fractures. Reviewed by: Vic Grady MD on 02/10/2023 10:33 AM YAMILE Approved by: Vic Grady MD on 02/10/2023 10:33 AM YAMILE Station ID: [id number]
[2023-02-10] MEDS ORDERED: ceFAZolin 1 GM in SODIUM CHLORIDE 0.9% MINIBAG 100 ML IV STA (11:52)
--- NOTE | 2023-02-10 11:57 | ED Physician Documentation ---
History of Present Illness - Stated complaint Stated Complaint: GLF/L WRIST PX - Chief complaint Chief Complaint: Trauma Ext - History obtained from History obtained from: Patient, EMS - Additonal information Additional information: The patient is brought to the emergency department by EMS from his assisted living facility after taking a ground-level fall. He states he was getting up off the toilet and fell. He caught himself on his left outstretched hand and does not think that he hit his head, but is not sure. He laid on the floor for a while and then staff found him. The patient states that he thinks the whole incident happened about a few hours prior to the transport. The patient's main complaint is deformity and pain in his left wrist. He denies any headache or neck pain. He states that he does not have any hip pain. No other complaints at this time. PD PAST MEDICAL HISTORY - Past Medical History Cardiovascular: Hypertension, High cholesterol Respiratory: None Neuro: Dementia, CVA, TIA, Seizure disorder Endocrine/Autoimmune: None GI: None, Other : None HEENT: None Psych: Depression Musculoskeletal: None Derm: None - Past Surgical History Past Surgical History: No - Present Medications Home Medications: Ambulatory Orders Medication Instructions Recorded Confirmed Clopidogrel [Plavix] 75 mg PO DAILY 12/25/15 05/11/21 Simvastatin 20 mg PO DAILY 12/25/15 05/11/21 Meclizine HCl [Motion Sickness 25 mg PO Q6H PRN 04/08/19 05/11/21 Relief] Aspirin [Aspirin EC] 81 mg PO DAILY 02/23/21 05/11/21 Cholecalciferol (Vitamin D3) 50 mcg PO DAILY 02/23/21 05/11/21 [Vitamin D3] Levetiracetam [Keppra] 1,000 mg PO BID 02/23/21 05/11/21 traZODone [Desyrel] 50 mg PO QPM 02/23/21 05/11/21 HYDROcod/ACETAM 5/325 [[place] 5/325] 1 - 2 tablet PO Q6H PRN #14 tablet 02/10/23 cephALEXin [Keflex] 500 mg PO Q6H #28 cap 02/10/23 - Allergies Allergies/Adverse Reactions: Allergies Allergy/AdvReac Type Severity Reaction Status Date / Time No Known Drug Allergies Allergy Verified 02/10/23 08:24 - Social History Does the pt smoke?: No Smoking Status: Never smoker Does the pt drink ETOH?: No Does the pt have substance abuse?: No - Immunizations Immunizations are current?: Yes - POLST Patient has POLST: Yes PD ED PE NORMAL - Vitals Vital signs reviewed: Yes - General General: No acute distress, Well developed/nourished, Other (The patient is alert and appropriate. He answers questions clearly.) - HEENT HEENT: Atraumatic, PERRL, EOMI, Moist mucous membranes - Neck Neck: Supple, no meningeal sign, No bony TTP - Cardiac Cardiac: RRR, No murmur, Strong equal pulses - Respiratory Respiratory: No respiratory distress, Clear bilaterally - Abdomen Abdomen: Soft, Non tender, Non distended - Derm Derm: Normal color, Warm and dry, No rash, Other (1 cm laceration the ulnar most aspect of the patient's left Distal forearm.) - Extremities Extremities: Other (Marked deformity of the left wrist and forearm with tenderness and edema about the same area. Some movement of fingers on left. No hip or pelvis tenderness. No other tenderness anywhere else and no deformity.) - Neuro Neuro: soil tester 2-12 intact, No motor deficit, No sensory deficit, Normal speech, Other (Alert and appropriate.) - Psych Psych: Normal mood, Normal affect Results - Vitals Vitals: Oxygen O2 Source [] Room air O2 Source [] Room air O2 Source Room air - Labs Labs: Laboratory Tests 02/10/23 02/10/23 02/10/23 08:25 08:25 08:25 WBC 10.3 RBC 5.00 Hgb 14.8 Hct 46.9 MCV 93.8 MCH 29.6 MCHC 31.6 L RDW 12.1 Plt Count 146 MPV 10.3 Neut # (Auto) 8.8 H Lymph # (Auto) 0.6 L [place] # (Auto) 0.8 Eos # (Auto) 0.0 Baso # (Auto) 0.0 Absolute Nucleated RBC 0.00 Nucleated RBC % 0.0 PT 11.2 INR 1.0 Sodium 142 Potassium 4.1 Chloride 105 Carbon Dioxide 28 Anion Gap 9.0 BUN 23 H Creatinine 1.0 Estimated GFR (MDRD) 73 L Glucose 111 H Calcium 8.9 Total Bilirubin 1.0 AST 29 ALT 23 Alkaline Phosphatase 110 Total Protein 7.2 Albumin 4.0 Globulin 3.2 Albumin/Globulin Ratio 1.3 Lipase 33 - Rads (name of study) X-ray left wrist Relevant Findings:: Final report received, See rad report (Comminuted, angulated, and foreshortened fracture of the distal radius and ulna) Left wrist x-ray postreduction Relevant Findings:: Final report received, See rad report (Interval casting with improved alignment of comminuted radial and ulnar fractures) CT head Relevant Findings:: Final report received, See rad report (No acute abnormality) CT C-spine Relevant Findings:: Final report received, See rad report (No acute findings) Left forearm X-ray Relevant Findings:: Final report received, See rad report (Fracture of left wrist as above, no pathology more proximally) Procedures - Reduction Body part reduced: Left, Wrist Fracture or dislocation: Fracture Anesthesia: Hematoma block, Marcaine (enter cc) (7) Reduction aftercare: NV intact, Xray confirms reduction, Alignment improved, Splint applied, Sling, Patient tolerated well PD Medical Decision Making - ED course Complexity details: reviewed old records, reviewed results, re-evaluated patient, considered differential, d/w patient ED course: The patient overall was well-appearing but he had a very deformed left wrist. He did have a history of being on anticoagulation, and since it was not 100% clear whether he had hit his head or not, I did send him for CT scan of the head. CT cervical spine was also performed because the possibility of striking his head and both of these were unremarkable. I did also send the patient for x-rays of his left wrist and forearm, and this did show a comminuted, angulated, foreshortened fracture of both the distal radius and distal ulna. No fractures were noted more proximally. I did perform a hematoma block on the patient with Marcaine and patient had also been given a dose of Dilaudid and was feeling somewhat better after this. I discussed with the patient that we would need to place a splint and that we would also need to simultaneously reduce the fracture. The patient was comfortable enough for us to get started and did t olerate the procedure overall very well. We were able to place the splint after reduction and x-ray on repeat showed significantly improved alignment. The patient's small laceration I suspected was from a bony fragment that was protruding horizontally, as patient did not feel that there is anything he could have lacerated his arm on otherwise and this did correspond with the orientation of the bone fragment. As such, I did give him a dose of Ancef here in the emergency department and I have prescribed Keflex for him. I did discuss the case with Dr. Zacarias, who viewed the pt's x-rays, and stated that he would follow up with the pt in orthopedic clinic. At this point in time felt the patient was stable for discharge home. We discussed the need for follow-up, as well as the usual indications for return. Departure - Departure Disposition: Home, Self Care Clinical Impression: Wrist fracture, left Qualifiers: Encounter type: initial encounter Fracture type: open Qualified Code(s): S62.102B - Fracture of unspecified carpal bone, left wrist, initial encounter for open fracture Condition: Stable Instructions: ED Fx Wrist General Follow-Up: Aniket Zacarias MD [Provider Admit Priv/Credential] - Prescriptions: cephALEXin [Keflex] 500 mg PO Q6H #28 cap HYDROcod/ACETAM 5/325 [[place] 5/325] 1 - 2 tablet PO Q6H PRN #14 tablet PRN Reason: Pain Comments: Your head CT and CT of the neck look good. There is no evidence of injury, bleeding, or broken bones. You did have x-rays of your left wrist and forearm performed, which showed significant fractures of both the forearm bones at the wrist. It does appear that one of the bone fragments punctured your skin to and because of this, you have been placed on antibiotics. We have straightened the bones out and put them back in alignment, and you been placed in a splint. It is very, very important that you stay on the antibiotics to prevent infection from setting in in the broken area, since you have punctured the skin. The prescription for both your antibiotics and a pain medication has been electronically transmitted to the [facility] pharmacy in [place], as it will take too long for your mail order prescriptions to get here and you need to stay on the antibiotics. You have been given an IV dose of antibiotics here in the emergency room. You will need to follow-up with orthopedics within the week to have a formal cast put in place or to discuss having surgery, which ever they think should happen for you. We have tried a number of times to get a hold of our orthopedist on-call today and will continue to reach out until we make contact and establish a plan for you. You should call first thing tomorrow to ashley edgar the follow-up appointment, in the meantime. Please keep the splint in place until you see orthopedics. You may use the sling as needed to help support your arm. Discharge Date/Time: 02/10/23 13:44
[2023-02-10 13:26] VITALS: BP 163/113
== END 2023-02-10 13:44 | disposition home or self-care (01) ==
LOC: EDUNIT# → ED 08:10
DX: S52.602A Unspecified fracture of lower end of left ulna, initial encounter for closed fracture (principal); S52.502A Unspecified fracture of the lower end of left radius, initial encounter for closed fracture; S62.102B Fracture of unspecified carpal bone, left wrist, initial encounter for open fracture; W19.XXXA Unspecified fall, initial encounter; Y93.E8 Activity, other personal hygiene; Y92.192 Bathroom in other specified residential institution as the place of occurrence of the external cause
CPT/HCPCS: 25605; 36415; 70450; 72125; 73090; 73110; 80053; 83690; 85025; 85610; 96365; 96375; 99284; J1170

== ENCOUNTER 2023-02-10 13:45 | Outpatient (CLI) | payer MEDICARE, MEDICAID | END 2023-02-10 13:46 | disposition home or self-care (01) | LOC: EMS 13:45 | PROVIDERS: ATTEND Emergency Medicine | DX: R41.0 Disorientation, unspecified (principal); S62.102A Fracture of unspecified carpal bone, left wrist, initial encounter for closed fracture; X58.XXXA Exposure to other specified factors, initial encounter | CPT/HCPCS: A0425; A0428 ==

== ENCOUNTER 2023-02-11 18:28 | Outpatient (CLI) | payer MEDICARE, MEDICAID | END 2023-02-11 18:29 | disposition EMS.NT | LOC: EMS 18:28 | DX: Z03.89 Encounter for observation for other suspected diseases and conditions ruled out (principal) ==

== ENCOUNTER 2023-02-14 15:51 | Outpatient (CLI) | payer MEDICARE, MEDICAID ==
--- NOTE | 2023-02-14 16:02 | XRAY Report ---
PROCEDURE: Wrist 3 View LT INDICATIONS: LEFT WRIST FRACTURE TECHNIQUE: 4 views of the wrist were acquired. COMPARISON: Left wrist radiographs 02/10/2023. FINDINGS: Bones: Casting material skin is fine bony detail. Comminuted distal radius fracture. Mild impaction. Distal ulna fracture. Prior ulnar styloid fracture. No fractures or dislocations. No suspicious bon y lesions. Soft tissues: No suspicious soft tissue calcifications. IMPRESSION: Fractures of the distal radius and ulna are unchanged. Reviewed by: Flaco Winchester MD on 02/14/2023 4:01 PM PDT Approved by: Flaco Winchester MD on 02/14/2023 4:01 PM PDT Station ID: [id number]
--- NOTE | 2023-02-14 16:04 | XRAY Report ---
PROCEDURE: Wrist 2 View LT INDICATIONS: LEFT WRIST FRACTURE POST CASTING AND REDUCTION TECHNIQUE: 2 views of the wrist were acquired. COMPARISON: Left wrist radiographs 02/10/2023. FINDINGS: Bones: Casting material skin is fine bony detail. Comminuted distal radius fracture. Distal ulnar fra cture. Stable alignment. No suspicious bony lesions. Soft tissues: No suspicious soft tissue calcifications. IMPRESSION: Ongoing healing of the distal radius and ulnar fractures. Reviewed by: Flaco Winchester MD on 02/14/2023 4:02 PM PDT Approved by: Flaco Winchester MD on 02/14/2023 4:02 PM PDT Station ID: [id number]
== END 2023-02-14 15:53 | disposition home or self-care (01) ==
LOC: DI.WOS 15:51
PROVIDERS: ATTEND Orthopaedic Surgery
DX: S52.572D Other intraarticular fracture of lower end of left radius, subsequent encounter for closed fracture with routine healing (principal); S52.602D Unspecified fracture of lower end of left ulna, subsequent encounter for closed fracture with routine healing

== ENCOUNTER 2023-03-07 13:29 | Outpatient (CLI) | payer MEDICARE, MEDICAID ==
--- NOTE | 2023-03-08 12:19 | XRAY Report ---
PROCEDURE: Wrist 3 View LT INDICATIONS: LEFT WRIST FRACTURE TECHNIQUE: 3 views of the wrist were acquired. COMPARISON: X-ray left wrist, 02/17/2023, 02/10/2023. FINDINGS: Bones: Healing fractures are seen involving the distal radial and ulnar metaphyses is callus formatio n . The alignment is stable. There is ulnar styloid fracture. Osteopenia. No suspicious bony lesions . Soft tissues: No suspicious soft tissue calcifications or masses. Soft tissue swelling. IMPRESSION: Healing distal radial and ulnar metaphyseal fractures. Reviewed by: Mejia Armstrong MD on 03/08/2023 12:18 PM PDT Approved by: Mejia Armstrong MD on 03/08/2023 12:18 PM PDT Station ID: [id number]
== END 2023-03-07 13:31 | disposition home or self-care (01) ==
LOC: DI.WOS 13:29
PROVIDERS: ATTEND Orthopaedic Surgery
DX: S52.502D Unspecified fracture of the lower end of left radius, subsequent encounter for closed fracture with routine healing (principal); S52.602D Unspecified fracture of lower end of left ulna, subsequent encounter for closed fracture with routine healing

== ENCOUNTER 2023-04-04 16:47 | Outpatient (CLI) | payer MEDICARE, MEDICAID ==
--- NOTE | 2023-04-04 14:21 | XRAY Report ---
PROCEDURE: Wrist 3 View LT INDICATIONS: LEFT WRIST FRACTURE TECHNIQUE: 3 views of the wrist were acquired. COMPARISON: X-ray wrist 03/07/2023, 02/10/2023 FINDINGS: Bones: Stable alignment of mildly displaced and impacted distal radial and fractures. There is an ap pearance of sclerosis indicative of mild healing with fracture lucencies are slightly less prominent compared to prior exam. Ulna styloid fracture is also noted. No suspicious bony lesions. Degenerati ve changes are present within the visualized IP joints most notably the first PIP. Soft tissues: No suspicious soft tissue calcifications or masses. IMPRESSION: Stable alignment and continued interval healing of distal radial ulnar metaphyseal fractures. Reviewed by: Daylin Rubi MD on 04/04/2023 2:19 PM PDT Approved by: Daylin Rubi MD on 04/04/2023 2:19 PM PDT Station ID: [id number]
== END 2023-04-04 16:48 | disposition home or self-care (01) ==
LOC: DI.WOS 16:47
PROVIDERS: ATTEND Orthopaedic Surgery
DX: S52.102D Unspecified fracture of upper end of left radius, subsequent encounter for closed fracture with routine healing (principal)

== ENCOUNTER 2024-06-18 20:01 | Outpatient (CLI) | payer MEDICARE, MEDICAID | END 2024-06-18 23:59 | disposition critical access hospital (66) | LOC: EMS 20:01 | DX: R53.1 Weakness (principal); R53.81 Other malaise | CPT/HCPCS: A0425; A0429 ==

== ENCOUNTER 2024-06-18 20:17 | Emergency (ER) | payer MEDICARE, MEDICAID ==
--- NOTE | 2024-06-18 20:28 | ED Physician Documentation ---
PD HPI ALTERED MENTAL STATUS - Stated complaint Stated Complaint: LEFT SIDE WEAKNESS - Additional information Additional information: 73-year-old male with history of CVA and left-sided deficits, hypertension, hypercholesterolemia, dementia, seizure disorder presents emergency department via EMS from [facility] assisted living [facility] for decreased mental status and worsening weakness. Patient is a poor historian he is alert and oriented to self only he is able to converse that he does not know who president is, what year it is or where he is. According to EMS staff at [facility] reported the patient is acting more altered, increased weakness and appears to be more out of it than normal. Patient says that he feels like he is at baseline denies any abdominal pain no nausea vomiting or diarrhea but again is quite a poor historian. PD PAST MEDICAL HISTORY - Past Medical History Cardiovascular: Hypertension, High cholesterol Respiratory: None Neuro: Dementia, CVA, TIA, Seizure disorder Endocrine/Autoimmune: None GI: None, Other : None HEENT: None Psych: Depression Musculoskeletal: None Derm: None - Past Surgical History Past Surgical History: No - Present Medications Home Medications: Ambulatory Orders Medication Instructions Recorded Confirmed Clopidogrel [Plavix] 75 mg PO DAILY 12/25/15 05/11/21 Simvastatin 20 mg PO DAILY 12/25/15 05/11/21 Meclizine HCl [Motion Sickness 25 mg PO Q6H PRN 04/08/19 05/11/21 Relief] Aspirin [Aspirin EC] 81 mg PO DAILY 02/23/21 05/11/21 Cholecalciferol (Vitamin D3) 50 mcg PO DAILY 02/23/21 05/11/21 [Vitamin D3] Levetiracetam [Keppra] 1,000 mg PO BID 02/23/21 05/11/21 traZODone [Desyrel] 50 mg PO QPM 02/23/21 05/11/21 HYDROcod/ACETAM 5/325 [Hope 5/325] 1 - 2 tablet PO Q6H PRN #14 tablet 02/10/23 cephALEXin [Keflex] 500 mg PO Q6H #28 cap 02/10/23 - Allergies Allergies/Adverse Reactions: Allergies Allergy/AdvReac Type Severity Reaction Status Date / Time No Known Drug Allergies Allergy Verified 02/10/23 08:24 - Social History Does the pt smoke?: No Smoking Status: Never smoker Does the pt drink ETOH?: No Does the pt have substance abuse?: No - Immunizations Immunizations are current?: Yes - POLST Patient has POLST: Yes PD ED PE NORMAL - Vitals Vital signs reviewed: Yes - General General: No acute distress, Well developed/nourished, Other - HEENT HEENT: Atraumatic, PERRL. No: Moist mucous membranes - Cardiac Cardiac: RRR - Respiratory Respiratory: No respiratory distress, Clear bilaterally - Derm Derm: Other (pale) - Extremities Extremities: No edema, No calf tenderness / cord, Other (chronic left sided defecits) - Neuro Eye Opening: Spontaneous Motor: Obeys Commands Verbal: Confused GCS Score: 14 Results - Vitals Vitals: Vital Signs - 24 hr 06/18/24 06/18/24 20:25 20:35 Temperature 37.0 C Heart Rate 83 85 Respiratory 20 16 Rate Blood Pressure 107/84 H 105/77 O2 Saturation 97 95 Oxygen O2 Source [] Room air O2 Source [] Room air O2 Source Room air - EKG (time done) 2024 EKG releavant findings:: EKG personally interpreted by author of this note. Relevant findings are: Rate: Rate (enter#) (87) Rhythm: NSR Intervals: RBBB QRS: Normal Ischemia: Normal ST segments Other comments: Other comments (anterolateral infarct) Computer interpretation: Agree with computer - Labs Labs: Laboratory Tests 06/18/24 06/18/24 20:46 20:46 WBC 6.6 RBC 4.12 L Hgb 7.2 L Hct 28.3 L MCV 68.7 L MCH 17.5 L MCHC 25.4 L RDW 19.5 H Plt Count 231 MPV 10.1 Neut # (Auto) 5.0 Lymph # (Auto) 0.9 L [place] # (Auto) 0.6 Eos # (Auto) 0.0 Baso # (Auto) 0.1 Absolute Nucleated RBC 0.00 Nucleated RBC % 0.0 Manual Slide Review Indicated Platelet Estimate NORMAL (130-450,000) Platelet Morphology NORMAL APPEARANCE RBC Morph Micro Appear 2+ HYPOCHROMASIA Sodium 141 Potassium 3.4 L Chloride 106 Carbon Dioxide 30 Anion Gap 5.0 L BUN 17 Creatinine 0.8 Estimated GFR (MDRD) 95 Glucose 156 H Calcium 8.8 Magnesium 1.7 Total Bilirubin 0.3 AST 19 ALT 15 Alkaline Phosphatase 94 Total Protein 5.6 L Albumin 3.6 Globulin 2.0 L Albumin/Globulin Ratio 1.8 Lipase 30 PD Medical Decision Making - ED course ED course: 73-year-old male presents emergency department from [facility] for concerns of staff for decreased mentation increased generalized weakness and altered mental status. Patient is alert and oriented to self only. Initial labs have resulted and patient is found to have a significant drop in his hemoglobin of 7.2. Last hemoglobin was complete about a year ago and it was found to be 14.8. Mild hypokalemia 3.4 and very low total protein at 5.6. Because of his low hemoglobin we initially were going to start investigating where the bleeding is coming from to do a rectal exam as well as guaiac with a CT abdomen pelvis and blood transfusion. When I discussed with the patient the possibility of doing a blood transfusion patient was very adamant that he did not want any more further intervention or workup and he did not want a blood transfusion, JEFFERSON Neely at bedside for this. I then reached out to [facility] and spoke with his legal power of attorney recruiter Kaitlyn Correia who has worked quite extensively with the patient and she is saying that what patient is asking for is consistent with previous request of not wanting intervention or advanced workup. His POLST form shows limited intervention but his power of attorney recruiter Kaitlyn believes that we should transition him to comfort measures only and eventually patient would probably benefit from transitioning to hospice. She says that patient would not tolerate a rectal exam for guaiac and would not tolerate further workup with CT scans and if we were to find anything patient would not want intervention such as surgery or GI consult. I have updated the POLST form over the telephone with the patient's legal power of attorney recruiter Kaitlyn and faxed over the POLST form to her as well as sent updated POLST form to [facility]. We have also sent over the discharge summary as well as patient's ER visit to patient's power of attorney recruiter. Kaitlyn will work on getting hospice involved tomorrow. She is informed that if anyone changes her mind or if patient changes his mind that he is more than welcome to come back to the emergency department for further workup and evaluation. Departure - Departure Disposition: 01 Home, Self Care Clinical Impression: Anemia, Low hemoglobin, Transitioned from acute care to hospice Instructions: Hospice Start Comments: Mina we have found that you have a very low hemoglobin, low blood count. I s poke with your power of attorney recruiter Maria E's quality care Kaitlyn and it does not sound like he would want further interventions at this time. You also said that you did not want to pursue a blood transfusion. At this point in time we are transitioning you to comfort focused treatment only. Vicky will manage these details tomorrow and we have called [facility] to let them know about these updates. Forms: PCP List
[2024-06-18 20:37] VITALS: O2SAT 95
[2024-06-18 20:52] LABS: BASOPHILS # (AUTO) 0.1 10^3/uL (0.0-0.1); BASOPHILS % (AUTO) 0.8 %; EOSINOPHILS % (AUTO) 0.3 %; HCT - HEMATOCRIT 28.3 % (42.0-52.0); HGB - HEMOGLOBIN 7.2 g/dL (14.0-18.0); LYMPHOCYTES # (AUTO) 0.9 10^3/uL (1.5-3.5); LYMPHOCYTES % (AUTO) 13.7 %; MEAN CORPUSCULAR HEMOGLOBIN 17.5 pg (27.0-31.0); MEAN CORPUSCULAR HGB CONC 25.4 g/dL (32.0-36.0); MEAN CORPUSCULAR VOLUME 68.7 fL (80.0-94.0); MEAN PLATELET VOLUME 10.1 fL (7.4-11.4); MONOCYTES # (AUTO) 0.6 10^3/uL (0.0-1.0); MONOCYTES % (AUTO) 9.7 %; NEUTROPHILS % (AUTO) 75.2 %; PLT - PLATELET COUNT 231 10^3/uL (130-450); RED BLOOD COUNT 4.12 10^6/uL (4.70-6.10); RED CELL DISTRIBUTION WIDTH 19.5 % (12.0-15.0); WHITE BLOOD COUNT 6.6 x10^3/uL (4.8-10.8)
[2024-06-18] MEDS ORDERED: iohexoL-300 100 ML VIAL ONE (20:55)
[2024-06-18 20:56] LABS: SLIDE REVIEW? Indicated
[2024-06-18 21:10] LABS: ALBUMIN 3.6 g/dL (3.2-5.5); ALBUMIN/GLOBULIN RATIO 1.8 (1.0-2.2); BILIRUBIN,TOTAL 0.3 mg/dL (0.2-1.0); CALCIUM 8.8 mg/dL (8.5-10.3); CREATININE 0.8 mg/dL (0.6-1.3); MAGNESIUM 1.7 mg/dL (1.7-2.3); POTASSIUM 3.4 mmol/L (3.5-4.5); TOTAL PROTEIN 5.6 g/dL (6.4-8.9)
[2024-06-18 21:15] LABS: PLATELET ESTIMATE, MANUAL NORMAL (130-450,000) (NORMAL); PLATELET MORPHOLOGY NORMAL APPEARANCE (NORMAL)
[2024-06-18] MEDS ORDERED: ONDANSETRON 4 MG/2 ML VIAL IVP PRN (21:45)
[2024-06-18] MEDS ORDERED: SODIUM CHLORIDE FLUSH 0.9% 10 ML SYRINGE IVP PRN (21:45)
[2024-06-18] MEDS ORDERED: ACETAMINOPHEN 325 MG TABLET PO PRN (21:45)
[2024-06-18] MEDS ORDERED: ONDANSETRON ODT 4 MG TABLET TL PRN (21:45)
--- NOTE | 2024-06-18 22:02 | MISCELLANEOUS PROVIDER NOTE ---
Miscellaneous Provider Note - - Note: Call for admission canceled. Per discussion with ED provider, Isela Somers, patient will be discharge home on hospice. Please see her note for further details.
[2024-06-18] MEDS: iohexoL-300 100 ML VIAL IVP ONE (22:39)
[2024-06-18 23:01] VITALS: BP 110/76
[2024-06-19] MEDS ORDERED: SODIUM CHLORIDE FLUSH 0.9% 10 ML SYRINGE IVP SCH (01:00)
--- NOTE | 2024-06-19 06:15 | ED Physician Documentation ---
ED Addendum - Addendum Addendum: 06/19/24 06:12 Note that FUNDER Lizbet attempted to cancel CT head given the patient's wishes to be on comfort measures only and as per discussion with NIECY Sahni, however it was unable to be canceled in time. CT report was provided to me at 6am and showed no acute intracranial hemorrhage, with age indeterminate lacunar infarct as well as some cerebral volume loss vs NPH. Given he is is on comfort measures these findings will not change the patient's management. Note placed in chart and CT reports were documented as well.
--- NOTE | 2024-06-19 13:56 | CT Report ---
PROCEDURE: Angio Head/Neck INDICATIONS: Left sided weakness, AMS TECHNIQUE: After the administration of intravenous contrast, 1 mm thick sections acquired from the aortic arch t hrough the [place]. 3-dimensional lmxkrcr-mznsybvcs-befodcopqe (MIP) and/or volume renderin g reformats were acquired of the central intracranial vasculature and neck separately. For radiation dose reduction, the following was used: automated exposure control, adjustment of mA and/or kV acco rding to patient size. CONTRAST: Omni 300, 80mls COMPARISON: Correlation is made with the accompanying imaging. FINDINGS: Image quality: Limited by bolus timing, with venous contamination. HEAD CT: CSF Spaces: Basal cisterns are patent. No extra-axial fluid collections. Ventricles are normal in size and shape. Brain: No significant abnormality is seen for scanning technique. Skull and face: Calvarium and visualized facial bones appear intact, without suspicious lesions. Sinuses: Visualized sinuses and mastoids are clear. HEAD CT ANGIOGRAPHY: Anterior circulation: Intracranial internal carotid arteries demonstrate dense atherosclerotic calci fication, with 50-60% narrowing seen on each side. The flow within the paired anterior cerebral ana elias is normal and symmetric. The flow within the middle cerebral arteries is normal and symmetric. The anterior communicating artery is seen. No aneurysms are seen. Posterior circulation: The visualized portions of the vertebral arteries demonstrate normal caliber, and join to form the basilar artery. The basilar artery appears small in size. Incidental note is made of a prominent left posterior communicating artery, with a diminutive left P1 segment. This is a ttributed to a type origin of the right posterior cerebral artery, which is considered to be a developmental variant of typically no clinical consequence. The flow within the posterior cerebral arteries is normal and symmetric. No stenoses, occlusions, or aneurysms. NECK CT ANGIOGRAPHY: Carotid system: The great vessels demonstrate a conventional anatomy as they arise from the aortic a rch. The origins of the common carotid arteries appear patent. The common carotid arteries demonstr ate normal caliber and courses. The bifurcation regions demonstrate dense atherosclerotic calcificat ion and irregularity, with soft plaque. On the right, there is 80% narrowing involving the right prox imal internal carotid artery. On the left, there is 50% narrowing seen involving the left carotid art polina origin. The more distal internal carotid arteries demonstrate normal course and caliber. Posterior circulation: The origins of the vertebral arteries both appear widely patent. The more saravia perior extracranial portions of both vertebral arteries also demonstrate normal courses and calibers. They join to form a normal appearing basilar artery. Soft tissues: Visualized neck soft tissues demonstrate no suspicious abnormalities. Bones: No suspicious bony lesions. Visualized cervical spine appears normally aligned. Degenerative changes can be seen throughout the cervical spine. Fusion is seen at C4-C5 and C5-C6. IMPRESSION: No focal intracranial stenosis is seen. However, the basilar artery demonstrate small size. Focal atherosclerotic irregularity can be seen involving the carotid bifurcation regions, with 80% na rrowing on the right and 50% narrowing on the left. 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
--- NOTE | 2024-06-19 14:44 | CT Report ---
PROCEDURE: Head WO INDICATIONS: AMS, worsening left side weakness TECHNIQUE: Noncontrast 4.5 mm thick angled axial sections acquired from the foramen magnum to the vertex. For r adiation dose reduction, the following was used: automated exposure control, adjustment of mA and/or kV according to patient size. COMPARISON: 02/10/2023, 04/08/2019, 12/25/2015. Correlation is made with the accompanying imaging. FINDINGS: Image quality: Excellent. CSF spaces: Basal cisterns are patent. No extra-axial fluid collections. Ventricles are prominent in size, yet relatively symmetric. No significant change compared to 2022.. Brain: There is a remote, stable infarct involving the right occipital lobe. No midline shift. No i ntracranial masses or hemorrhage. Arango-white matter interface is normal. Skull and face: Calvarium and visualized facial bones are intact, without suspicious lesions. Sinuses: Visualized sinuses and mastoids are clear. IMPRESSION: No acute intracranial pathology. Stable right occipital lobe infarction. Stable symmetric prominence of the lateral ventricles. To the limits of this noncontrast study, no findings of masses or mass effect can be seen. Reviewed by: Onur Alonzo MD on 06/19/2024 1:42 PM YAMILE Approved by: Onur Alonzo MD on 06/19/2024 1:42 PM YAMILE Station ID: [id number]
== END 2024-06-18 22:56 | disposition home or self-care (01) ==
LOC: EDUNIT# → ED 20:17
DX: D64.9 Anemia, unspecified (principal); I10 Essential (primary) hypertension; E78.00 Pure hypercholesterolemia, unspecified; F03.90 Unspecified dementia, unspecified severity, without behavioral disturbance, psychotic disturbance, mood disturbance, and anxiety; Z86.73 Personal history of transient ischemic attack (TIA), and cerebral infarction without residual deficits; Z79.02 Long term (current) use of antithrombotics/antiplatelets; Z79.82 Long term (current) use of aspirin
CPT/HCPCS: 36415; 80053; 83690; 83735; 85025; 93005; 99284; 99285; Q9967; 85610; 85730; 86850; 86900; 86901

== ENCOUNTER 2024-06-18 22:56 | Outpatient (CLI) | payer MEDICARE, MEDICAID | END 2024-06-18 23:59 | disposition home or self-care (01) | LOC: EMS 22:56 | PROVIDERS: ATTEND Nurse Practitioner | DX: R41.0 Disorientation, unspecified (principal); Z74.01 Bed confinement status; F03.90 Unspecified dementia, unspecified severity, without behavioral disturbance, psychotic disturbance, mood disturbance, and anxiety; D64.9 Anemia, unspecified; I63.9 Cerebral infarction, unspecified | CPT/HCPCS: A0425; A0428 ==